=== PATIENT | female | born 1935 | race Caucasian/White ===

== ENCOUNTER 2018-03-22 20:12 | Inpatient (IN) | payer OTHER ==
--- NOTE | 2018-03-22 20:19 | PDOC ---
Rapid Medical Evaluation Time Seen by Provider: 03/22/18 20:14 Medical Evaluation: Allergies Allergy/AdvReac Type Severity Reaction Status Date / Time Corticosteroids Allergy Verified 02/09/18 23:03 (Glucocorticoids) STEROID Allergy REDNESS/HUY Uncoded 02/09/18 23:03 H 03/22/18 20:14 Pt presents for multiple issues including weakness. Pt was seen by her PCP and was told that she has elevated kidney numbers, and possible low H&H. Son is also reporting jaundice. Also states she has shingles on her back, started treatment today. Exam: appears pale, with possible scleral icterus. Ankles swollen Orders: Labs, urine, IV, EKG, CXR Pt to proceed to ED for further evaluation Discharge Disposition - Diagnosis Weakness - Referrals - Patient Instructions - Post Discharge Activity
[2018-03-22 20:50] LABS: BASO % 1.4 % (0-2.0); EOS % 3.9 % (0-4.5); HEMATOCRIT 27.2 % (32.4-45.2); HEMOGLOBIN 8.9 GM/dL (10.7-15.3); LYMPH % 20.3 % (8-40); MCH 26.4 pg (25.7-33.7); MCHC 32.8 g/dl (32.0-36.0); MEAN CELL VOLUME 80.6 fl (80-96); MEAN PLT VOLUME 7.3 fl (7.5-11.1); MONO % 7.3 % (3.8-10.2); NEUT % 67.1 % (42.8-82.8); PLATELET COUNT 619 K/MM3 (134-434); RBC 3.38 M/mm3 (3.60-5.2); RDW 21.9 % (11.6-15.6); WHITE BLOOD COUNT 5.3 K/mm3 (4.0-10.0)
[2018-03-22 21:17] LABS: INR 1.71 (0.83-1.09); PROTHROMBIN TIME (PATIENT) 19.3 SEC (9.7-13.0)
[2018-03-22 21:42] LABS: ALBUMIN 2.5 g/dl (3.4-5.0); ANION GAP 11 MMOL/L (8-16); BILIRUBIN,TOTAL 1.5 mg/dL (0.2-1.0); BLOOD UREA NITROGEN 14 mg/dL (7-18); CALCIUM 8.4 mg/dL (8.5-10.1); CHLORIDE 102 mmol/L (98-107); CO2 23 mmol/L (21-32); CREATININE 0.8 mg/dL (0.55-1.02); GLUCOSE,RANDOM 184 mg/dL (74-106); POTASSIUM 3.7 mmol/L (3.5-5.1); SGOT/AST 116 U/L (15-37); SGPT/ALT 67 U/L (12-78); SODIUM 136 mmol/L (136-145); TOT PROT 6.9 g/dl (6.4-8.2)
[2018-03-22 21:43] LABS: PLATELET ESTIMATE INCREASED
[2018-03-22 21:43] LABS: URINE APPEARANCE SLCLOUDY; URINE BILIRUBIN NEGATIVE (<2.0 mg/dL); URINE COLOR LTYELLOW; URINE GLUCOSE (UA) 1+ (NEGATIVE); URINE KETONE NEGATIVE (NEGATIVE); URINE NITRITE NEGATIVE (NEGATIVE); URINE PROTEIN NEGATIVE (NEGATIVE); URINE UROBILINOGEN NEGATIVE mg/dL (0.2-1.0)
[2018-03-22 21:44] LABS: ALK PHOS 269 U/L (45-117); ANISOCYTOSIS 2+; MACROCYTOSIS OCCASIONAL; N-TERMINAL BNP 2176.85 pg/ml (5-450)
[2018-03-22 21:48] LABS: URINE LEUK ESTERASE 3+ (NEGATIVE)
--- NOTE | 2018-03-22 21:49 | PDOC ---
Attending Attestation - [facility] HPI: 03/22/18 23:23 The patient is a 82 year old female, with a significant past medical history of GERD, HTN and HLD, who presents to the ED complaining of abnormal labs, jaundice and shingles. She notes that her shingles are spread across her back and abdomen. She was diagnosed today with shingles and as started on treatment. Her PMD sent her to the hospital for evaluation of all these stated symptoms, as well as elevated LFTs. On presentation, the patient notes that she is weak. The patient denies chest pain, shortness of breath, headache and dizziness. Denies fever, chills, nausea, vomiting, diarrhea or constipation. Denies dysuria , frequency, urgency and hematuria. Allergies: Corticosteroids Past surgical history: None reported Social History: No alcohol, tobacco or drug use reported - Physicial Exam PE: 03/22/18 23:19 Constitutional: Awake, alert, oriented. No acute distress. Head: Normocephalic. Atraumatic Eyes: PERRL. EOMI. Conjunctivae are not pale. ENT: Mucous membranes are moist and intact. Posterior pharynx without exudates or erythema. Uvula midline. Neck: Supple. Full ROM. No lymphadenopathy. Cardiovascular: Regular rate. Regular rhythm. S1, S2 regular. Distal pulses are 2+ and symmetric. Pulmonary/Chest: No evidence of respiratory distress. Clear to auscultation bilaterally No wheezing, rales or rhonchi. Abdominal: Soft and non-distended. There is no tenderness. No rebound, guarding or rigidity. No organomegaly. No palpable masses. Good bowel sounds. Back: (+) Shingles across back and abdomen (vesicles). No CVA tenderness. Musculoskeletal: (+) Trace edema to the ankles bilaterally. No cyanosis. No clubbing. Full range of motion in all extremities. Nocalf tenderness. Radial/ pedal pulses are intact and 2+ bilaterally Skin: (+) Jaundice. Skin is warm and dry. No petechiae. No purpura. Neurological: Alert and oriented to person, place, and time. Cranial nerves II -XII are grossly intact. Normal speech. Strength is grossly symmetric. No sensory deficits. Psychiatric: Good eye contact. Normal interaction, affect and behavior. <Iain Joyce - Last Filed: 03/22/18 23:25> - Resident Resident Name: David Zaman - ED Attending Attestation I have performed the following: I have examined & evaluated the patient, The case was reviewed & discussed with the resident, I agree w/resident's findings & plan, Exceptions are as noted - Medical Decision Making 03/22/18 21:49 I, Dr. Amara Stephenson, DO, attest that this document has been prepared under my direction and personally reviewed by me in its entirety. I further attest, that it accurately reflects all work, treatment, procedures and medical decision -making performed by me. 03/22/18 22:26 a/p: 82yo female sent by PMD for eval of jaundice, elevated lft -dx with shingles today with extensive shingles across back and abd - vesicles -no cp/sob -trace edema to ankles, but no calf ttp, no tightness to calf -pt is anticoag at baseline -will send labs -sent by PMD also for anemia -will repeat labs -will obtain ekg, ultrasound RUQ, will need admission for elevate lft and shingles infection <Amara Stephenson - Last Filed: 03/23/18 01:40> Discharge Disposition - Discharge Dispostion Last Admission D/C Date: 02/24/18 Decision to Admit order: Yes <Amara Stephenson - Last Filed: 03/23/18 01:40> - Diagnosis Weakness, UTI (urinary tract infection), Shingles - Discharge Dispostion Condition at time of disposition: Fair Heart Score/ECG Review - ECG Intrepretation Comment:: 03/23/18 01:05 sinus at 82, low voltage ekg, rbbb, q waves anterior that are age indeterminate <Amara Stephenson - Last Filed: 03/23/18 01:40>
[2018-03-22 21:51] LABS: EPI CELLS FEW /HPF (FEW); URINE BACTERIA RARE /hpf (NONE SEEN); URINE MUCUS RARE
[2018-03-23] MEDS ORDERED: CEFTRIAXONE 1 GM in DEXTROSE 5%-WATER - 100 ML IVPB ONE (01:23)
--- NOTE | 2018-03-23 01:46 | PN ---
Teaching Attending Note Name of Resident: Maxine Hernandez ATTENDING PHYSICIAN STATEMENT I saw and evaluated the patient. I reviewed the resident's note and discussed the case with the resident. I agree with the resident's findings and plan as documented. SUBJECTIVE: Patient is an 82 year old woman with a significant past medical history of GERD , HTN, recent hiatal hernia repair in 12/2017 with postop Afib, recent pericardial and pleural effusions, and HLD, who presents to the ER from her PCP complaining of abnormal labs, jaundice and shingles. She notes that her shingles are spread across her back and abdomen. She was diagnosed today with shingles and as started on treatment. Her PMD sent her to the hospital for evaluation of all these stated symptoms, as well as elevated LFTs. On presentation, the patient notes that she is weak. She denies chest pain, shortness of breath, headache, chills, vomiting, diarrhea or dysuria. OBJECTIVE: Alert Vital Signs Period Temp Pulse Resp BP Sys/Dawson Pulse Ox Last 24 Hr 98.2 F 92 18 143/78 97 HEENT: Has jaundice, eye redness or discharge, PERRLA, EOMI. Normocephalic, atraumatic. External ears are normal and hearing is grossly intact. No nasal discharge. Neck: Supple, nontender. No palpable adenopathy or thyromegaly. No JVD Chest: Good effort. Clear to auscultation and percussion. Heart: Regular. No S3, rub or murmur Abdomen: Not distended, soft, nontender and no HSM. No rebound or guarding. Normoactive bowel sounds. Ext: Peripheral pulses intact. Vesicles of herpes zoster on her back and abdomen. No leg edema. Skin: Warm and dry. No petechiae, rash or ecchymosis. Neuro: Alert. Oriented x3. CN 2-12 grossly intact. Sensation grossly intact in all four extremities and DTR are symmetric. Current Medications Generic Name Dose Route Start Last Admin Trade Name Freq PRN Reason Stop Dose Admin Ceftriaxone Sodium 1 gm/ 100 mls @ 200 mls/hr 03/23/18 01:23 Dextrose IVPB 03/23/18 01:52 ONCE ONE Protocol Home Medications Medication Instructions Recorded José Miguel/D3/Mag11/Zinc/Director Of Intercollegiate Athletics/[place]/Bor 1 each PO DAILY 11/09/15 [Caltrate 600+D Plus Tablet] Multivitamin [Poly-Vitamin] 1 each PO DAILY 06/02/15 [place]-3 Fatty Acids [Fish Oil] 300 mg PO DAILY 06/02/15 Apixaban [Eliquis -] 5 mg PO BID tablet 02/24/18 Atorvastatin Ca [Lipitor] 10 mg PO HS tablet 02/24/18 Docusate Sodium [Colace -] 100 mg PO TID capsule 02/24/18 Metoprolol Tartrate [Lopressor -] 25 mg PO TID tablet 02/24/18 Pantoprazole Sodium [Protonix -] 40 mg PO DAILY tablet.ec 02/24/18 Melatonin/Pyridoxine HCl (B6) 1 each PO DAILY 03/22/18 [Melatonin 3 mg Tablet] Abnormal Lab Results 03/22/18 03/22/18 03/22/18 20:15 20:41 20:41 RBC 3.38 L Hgb 8.9 L Hct 27.2 L RDW 21.9 H Plt Count 619 H D MPV 7.3 L PT with INR 19.30 H INR 1.71 H Random Glucose Calcium Total Bilirubin AST Alkaline Phosphatase B-Natriuretic Peptide Albumin Urine Glucose (UA) 1+ H Urine Blood 2+ H Ur Leukocyte Esterase 3+ H 03/22/18 20:41 RBC Hgb Hct RDW Plt Count MPV PT with INR INR Random Glucose 184 H Calcium 8.4 L Total Bilirubin 1.5 H AST 116 H Alkaline Phosphatase 269 H D B-Natriuretic Peptide 2176.85 H Albumin 2.5 L Urine Glucose (UA) Urine Blood Ur Leukocyte Esterase ASSESSMENT AND PLAN: 1. Herpes Zoster Infection - May explain some of her weakness, but she has been generally debilitated since her hiatal hernia repair surgery in December 2017, with unexplained elevated LFTs for at least 6-8 weeks. Will continue Valacyclovir 1000 mg po tid; get hepatitis serology, CT scan of abdomen and pelvis, check HbA1c, trend LFTs and consult GI for colonoscopy. Repeat ECHO - ?re- accumulation of pericardial effusion. 2. Hypoalbuminemia - Possibly due to combined effects of malnutrition and inflammation associated with comorbid chronic conditions. Will ensure adequate dietary protein intake and also consult ceramic mold designer. 3. Anemia - Do basic anemia work up including serial stool guaiacs, reticulocyte count and iron studies. 4. Afib - Now in NSR. On Eliquis. 5. DVT prophylaxis - On Eliquis 6. Advance directives - Full code
[2018-03-23] MEDS ORDERED: cefTRIAXone SODIUM 1 GM VIAL ONE (03:38)
--- NOTE | 2018-03-23 03:57 | HP ---
CHIEF COMPLAINT: weakness/abnormal labs/newly diagnosed shingles PCP: HISTORY OF PRESENT ILLNESS: 82 y/o female with PMH of HTN, Afib(on eliquis), HTN, HLD presented to the ED after coming from her PCP office for evaluation of abormal LFT's. In addition patient was diagnosed with shingles today and started on valacyclovir. Of note, patient had a hernia repair surgery back in December and has not felt well ever since. She had a complicated post-op course where she went into new onset Afib with RVR in addition developed pericardial effusions and was in the ICU. Since then, she has not felt like herself- she has less energy, barely has an appetite and has developed anemia and has began to become a lot more dyspneic than usual. ER course was notable for: (1) (2) (3) Recent Travel: none PAST MEDICAL HISTORY: see HPI PAST SURGICAL HISTORY: hernia repair, bladder lift Social History: Smoking: none Alcohol:none Drugs:none Family History: Allergies Corticosteroids (Glucocorticoids) Allergy (Verified 03/22/18 20:17) PER FAB[employer]IC[employer], PT STATED "STEROID" PT IS UNSURE OF WHICH STEROID. STEROID Allergy (Uncoded 03/22/18 20:17) REDNESS/RASH HOME MEDICATIONS: Home Medications Medication Instructions Recorded José Miguel/D3/Mag11/Zinc/Cello Teacher/[place]/Bor 1 each PO DAILY 06/02/15 [Caltrate 600+D Plus Tablet] Multivitamin [Poly-Vitamin] 1 each PO DAILY 06/02/15 [place]-3 Fatty Acids [Fish Oil] 300 mg PO DAILY 06/02/15 Apixaban [Eliquis -] 5 mg PO BID tablet 02/24/18 Atorvastatin Ca [Lipitor] 10 mg PO HS tablet 02/24/18 Docusate Sodium [Colace -] 100 mg PO TID capsule 02/24/18 Metoprolol Tartrate [Lopressor -] 25 mg PO TID tablet 02/24/18 Pantoprazole Sodium [Protonix -] 40 mg PO DAILY tablet.ec 02/24/18 Melatonin/Pyridoxine HCl (B6) 1 each PO DAILY 03/22/18 [Melatonin 3 mg Tablet] REVIEW OF SYSTEMS CONSTITUTIONAL: Present: generalized weakness, malaise, loss of appetiteAbsent: fever, chills, diaphoresis, weight change HEENT: Absent: rhinorrhea, nasal congestion, throat pain, throat swelling, difficulty swallowing, mouth swelling, ear pain, eye pain, visual changes CARDIOVASCULAR: Absent: chest pain, syncope, palpitations, irregular heart rate, lightheadedness , peripheral edema RESPIRATORY: Present:shortness of breath, dyspnea with exertion Absent: cough, orthopnea, wheezing, stridor, hemoptysis GASTROINTESTINAL: Absent: abdominal pain, abdominal distension, nausea, vomiting, diarrhea, constipation, melena, hematochezia GENITOURINARY: Absent: dysuria, frequency, urgency, hesitancy, hematuria, flank pain, genital pain MUSCULOSKELETAL: Absent: myalgia, arthralgia, joint swelling, back pain, neck pain SKIN: Present: shingles rash on back Absent: rash, itching, pallor HEMATOLOGIC/IMMUNOLOGIC: Absent: easy bleeding, easy bruising, lymphadenopathy, frequent infections ENDOCRINE: Absent: unexplained weight gain, unexplained weight loss, heat intolerance, cold intolerance NEUROLOGIC: Absent: headache, focal weakness or paresthesias, dizziness, unsteady gait, seizure, mental status changes, bladder or bowel incontinence PSYCHIATRIC: Absent: anxiety, depression, suicidal or homicidal ideation, hallucinations. PHYSICAL EXAMINATION Vital Signs - 24 hr 03/22/18 20:14 Temperature 98.2 F Pulse Rate 92 H Respiratory 18 Rate Blood Pressure 143/78 O2 Sat by Pulse 97 Oximetry (%) GENERAL: Awake, alert, and fully oriented, in no acute distress. EYES: +sclera icterus . NECK: no JVD appreciated. LUNGS: CTA B/L; no rales, rhonchi, wheezing HEART: Regular rate and rhythm, normal S1 and S2 without murmur, rub or gallop. ABDOMEN: Soft, nontender, not distended, normoactive bowel sounds, no guarding, no rebound, no masses. No hepatomegaly or splenomegaly. MUSCULOSKELETAL: Normal range of motion at all joints. No bony deformities or tenderness. No CVA tenderness. UPPER EXTREMITIES: 2+ pulses, warm, well-perfused. No cyanosis. No clubbing. No peripheral edema. LOWER EXTREMITIES: 2+ pulses, warm, well-perfused. No calf tenderness. No peripheral edema. NEUROLOGICAL: Cranial nerves II-XII intact. Normal speech. Normal gait. PSYCHIATRIC: Cooperative. Good eye contact. Appropriate mood and affect. SKIN: Warm, dry, normal turgor, no rashes or lesions noted, normal capillary refill. Laboratory Results - last 24 hr 03/22/18 03/22/18 03/22/18 20:15 20:41 20:41 WBC 5.3 RBC 3.38 L Hgb 8.9 L Hct 27.2 L MCV 80.6 MCH 26.4 MCHC 32.8 RDW 21.9 H Plt Count 619 H D MPV 7.3 L Absolute Neuts (auto) 3.6 Neutrophils % 67.1 D Lymphocytes % 20.3 D Monocytes % 7.3 Eosinophils % 3.9 D Basophils % 1.4 D Nucleated RBC % 0 Hypochromia Occasional Platelet Estimate Increased Polychromasia Occ Anisocytosis 2+ Macrocytosis Occasional PT with INR 19.30 H INR 1.71 H Sodium Potassium Chloride Carbon Dioxide Anion Gap BUN Creatinine Creat Clearance w eGFR Random Glucose Calcium Total Bilirubin AST ALT Alkaline Phosphatase Creatine Kinase Troponin I B-Natriuretic Peptide Total Protein Albumin Urine Color Ltyellow Urine Appearance Slcloudy Urine pH 6.0 Ur Specific [place] 1.003 Urine Protein Negative Urine Glucose (UA) 1+ H Urine Ketones Negative Urine Blood 2+ H Urine Nitrite Negative Urine Bilirubin Negative Urine Urobilinogen Negative Ur Leukocyte Esterase 3+ H Urine WBC (Auto) 8 Urine RBC (Auto) 4 Ur Epithelial Cells Few Urine Bacteria Rare Urine Mucus Rare Blood Type Antibody Screen 03/22/18 03/22/18 03/22/18 20:41 20:41 20:41 WBC RBC Hgb Hct MCV MCH MCHC RDW Plt Count MPV Absolute Neuts (auto) Neutrophils % Lymphocytes % Monocytes % Eosinophils % Basophils % Nucleated RBC % Hypochromia Platelet Estimate Polychromasia Anisocytosis Macrocytosis PT with INR INR Sodium 136 Potassium 3.7 Chloride 102 Carbon Dioxide 23 Anion Gap 11 BUN 14 Creatinine 0.8 Creat Clearance w eGFR > 60 Random Glucose 184 H Calcium 8.4 L Total Bilirubin 1.5 H AST 116 H ALT 67 Alkaline Phosphatase 269 H D Creatine Kinase 42 Troponin I < 0.02 B-Natriuretic Peptide 2176.85 H Total Protein 6.9 Albumin 2.5 L Urine Color Urine Appearance Urine pH Ur Specific [place] Urine Protein Urine Glucose (UA) Urine Ketones Urine Blood Urine Nitrite Urine Bilirubin Urine Urobilinogen Ur Leukocyte Esterase Urine WBC (Auto) Urine RBC (Auto) Ur Epithelial Cells Urine Bacteria Urine Mucus Blood Type A POSITIVE Antibody Screen Negative ASSESSMENT/PLAN: 82 y/o female with PMH of HTN, Afib(on eliquis), HTN, HLD presented to the ED after coming from her PCP office for evaluation of abormal LFT's. In addition patient was diagnosed with shingles today and started on valacyclovir. #1: Transaminitis patient found to have abnormal LFT's with scleral icterus, elevated alk phos and malaise possibly 2/2 malignancy vs. obstruction -f/u RUQ U/S -ct/ab pelvis pending -hepatitis panel ordered -GI consulted -trend LFT's #2: Shingles patient got diagnosed with shingles yesterday -started on valacyclovir 100 BID -calomine lotion for itchiness #3:Afib -on eliquis for AC #4: HTN: lopressor 25 daily #5 HLD: atorvastatin 10 daily Problem List - Problem (1) Elevated LFTs Code(s): R94.5 - ABNORMAL RESULTS OF LIVER FUNCTION STUDIES (2) Shingles Code(s): B02.9 - ZOSTER WITHOUT COMPLICATIONS (3) Weakness Code(s): R53.1 - WEAKNESS (4) Atrial fibrillation with RVR Code(s): I48.91 - UNSPECIFIED ATRIAL FIBRILLATION (5) Shortness of breath Code(s): R06.02 - SHORTNESS OF BREATH Visit type - Emergency Visit Emergency Visit: Yes ED Registration Date: 03/22/18 Care time: The patient presented to the Emergency Department on the above date and was hospitalized for further evaluation of their emergent condition. - New Patient This patient is new to me today: Yes Date on this admission: 03/23/18 - Critical Care Critical Care patient: No Hospitalist Screening - Colonoscopy Questionnaire Colonoscopy Questionnaire: Colonoscopy Questionnaire - Patient: 50 - 75 years old and never had a screening colonoscopy: Unknown History of colon or rectal polyps, or CA: Unknown History of IBD, Crohn's disease or UC: Unknown History of abdominal radiation therapy as a child: Unknown - Relative: 1 with colon or rectal CA, or polyps at age 60 or younger: Unknown Colon or rectal CA diagnosed at age 45 or younger: Unknown Multiple relatives with colon or rectal CA: Unknown - Outcome: Screening Result: Negative Screen
[2018-03-23 04:46] VITALS: BMI 27.9
[2018-03-23] MEDS: METOPROLOL TARTRATE 25 MG TABLET (FP) PO SCH ×3 (06:00→21:42)
[2018-03-23 07:40] LABS: LYMPH % 14.6 % (8-40); RBC 3.16 M/mm3 (3.60-5.2)
[2018-03-23 08:04] LABS: INR 1.46 (0.83-1.09); PROTHROMBIN TIME (PATIENT) 16.5 SEC (9.7-13.0)
[2018-03-23 08:06] LABS: BASO % 1.3 % (0-2.0); HEMATOCRIT 25.3 % (32.4-45.2); HEMOGLOBIN 8.1 GM/dL (10.7-15.3); MCH 25.6 pg (25.7-33.7); MEAN PLT VOLUME 7.5 fl (7.5-11.1); MONO % 8.9 % (3.8-10.2); NEUT % 73.2 % (42.8-82.8); PLATELET COUNT 549 K/MM3 (134-434); RDW 21.9 % (11.6-15.6)
[2018-03-23 08:22] LABS: CHLORIDE 107 mmol/L (98-107); POTASSIUM 3.8 mmol/L (3.5-5.1); SODIUM 141 mmol/L (136-145)
[2018-03-23 08:47] LABS: ALBUMIN 2.2 g/dl (3.4-5.0); ALK PHOS 227 U/L (45-117); ANION GAP 10 MMOL/L (8-16); BILIRUBIN,TOTAL 0.9 mg/dL (0.2-1.0); BLOOD UREA NITROGEN 10 mg/dL (7-18); CALCIUM 8.5 mg/dL (8.5-10.1); CO2 24 mmol/L (21-32); CREATININE 0.6 mg/dL (0.55-1.02); GLUCOSE,RANDOM 129 mg/dL (74-106); SGOT/AST 67 U/L (15-37); SGPT/ALT 49 U/L (12-78); TOT PROT 6.2 g/dl (6.4-8.2)
--- NOTE | 2018-03-23 09:27 | PDOC ---
History of Present Illness - General Chief Complaint: Revisit, Lab Variance Stated Complaint: PCP SENT/WEAKNESS Time Seen by Provider: 03/22/18 20:14 History Source: Patient Exam Limitations: No Limitations - History of Present Illness Initial Comments: Ms. Mcnamara is a 82 yo F with a pmhx of HTN, HLD, afib, and GERD who presents to the ED after being referred by her primary care doctor for abnormal labs, shingles outbreak, and new onset of jaundice. Her shingles outbreak has been ongoing for 1 day and is located on the right back spreading to the abdomen right side. She was placed on valcyclovir for this yesterday. In addition, per the patient, the PCP had concerns for her elevated LFTs and anemia. She has been having generalized weakness since her previous admission for pericardial effusion s/p pericardial window with acute worsening in the past few days ( Worse on Tuesday, states better today). Denies over use of ibuprofen. Denies the following: fever, headache, chest pain, SOB, nausea vomiting, diarrhea, melena/ he,atochezia, and lightheadedness. Pmhx: Refer to above Shx: Hiatal hernia repair December 29. Meds: Eliquis, metoprolol, lipitor, and protonix Social hx: Denies tobacco, alcohol, and substance abuse Wellness: Last colonoscopy 10 years ago and within normal limits. Denies familial colonic cancer hx. Past History - Past Medical History Allergies/Adverse Reactions: Allergies Allergy/AdvReac Type Severity Reaction Status Date / Time Corticosteroids Allergy Verified 03/22/18 20:17 (Glucocorticoids) STEROID Allergy REDNESS/HUY Uncoded 03/22/18 20:17 H Home Medications: Ambulatory Orders José Miguel/D3/Mag11/Zinc/Soil Analyst/Mas[place]/Bor [Caltrate 600+D Plus Tablet] 1 each PO DAILY 04/08 Multivitamin [Poly-Vitamin] 1 each PO DAILY 06/02/15 [place]-3 Fatty Acids [Fish Oil] 300 mg PO DAILY 06/02/15 Apixaban [Eliquis -] 5 mg PO BID tablet 02/24/18 Atorvastatin Ca [Lipitor] 10 mg PO HS tablet 02/24/18 Docusate Sodium [Colace -] 100 mg PO TID capsule 02/24/18 Metoprolol Tartrate [Lopressor -] 25 mg PO TID tablet 02/24/18 Pantoprazole Sodium [Protonix -] 40 mg PO DAILY tablet.ec 02/24/18 Melatonin/Pyridoxine HCl (B6) [Melatonin 3 mg Tablet] 1 each PO DAILY 03/22/18 Valacyclovir HCl [Valtrex -] 1,000 mg PO TID 03/23/18 Anemia: No Asthma: No Cancer: No Cardiac Disorders: Yes (AF) CVA: No COPD: No CHF: No Dementia: No Diabetes: No GI Disorders: Yes (GERD) Disorders: No HTN: Yes Hypercholesterolemia: Yes Liver Disease: No Seizures: No Thyroid Disease: No - Surgical History Abdominal Surgery: Yes (HERNIA REPAIR) - Reproductive History Is Patient Now?: No - Suicide/Smoking/Psychosocial Hx Smoking History: Never smoked Have you smoked in the past 12 months: No Number of Cigarettes Smoked Daily: 0 Cigars Per Day: 0 Information on smoking cessation initiated: No Hx Alcohol Use: No Drug/Substance Use Hx: No Substance Use Type: None Hx Substance Use Treatment: No Review of Systems - Review of Systems Able to Perform ROS?: Yes Constitutional: Yes: Weakness. No: Chills, Diaphoresis, Fever HEENTM: No: Recent change in vision, Ear Pain, Nose Pain, Throat Pain, Mouth Pain Respiratory: No: Cough, Shortness of Breath Cardiac (ROS): No: Chest Pain, Edema, Lightheadedness, Palpitations, Syncope, Chest Tightness ABD/GI: No: Constipated, Diarrhea, Nausea, Rectal Bleeding, Vomiting, Tarry Stools : No: Burning, Dysuria, Hematuria Musculoskeletal: Yes: Muscle Weakness. No: Back Pain Integumentary: Yes: Rash (right side). No: Erythema Neurological: Yes: Weakness. No: Headache, Numbness, Paresthesia, Tingling, Tremors, Unsteady Gait, Dizziness Psychiatric: No: Stressors Endocrine: No: Unexplained Weight Gain Hematologic/Lymphatic: Yes: Anemia *Physical Exam - Vital Signs Last Vital Signs Temp Pulse Resp BP Pulse Ox 98.9 F 92 H 18 123/97 97 03/23/18 04:38 03/23/18 04:38 03/23/18 05:18 03/23/18 04:38 03/23/18 05:18 - Physical Exam General Appearance: Yes: Nourished, Appropriately Dressed HEENT: positive: EOMI, JACINDA, Normal ENT Inspection, Normal Voice, Symmetrical Neck: positive: Trachea midline. negative: Lymphadenopathy (R), Lymphadenopathy (L) Respiratory/Chest: positive: Lungs Clear, Normal Breath Sounds Cardiovascular: positive: Regular Rhythm, Regular Rate, S1, S2. negative: Systolic Murmur Gastrointestinal/Abdominal: positive: Normal Bowel Sounds. negative: Tender Lymphatic: negative: Adenopathy Musculoskeletal: negative: CVA Tenderness Extremity: positive: Normal Capillary Refill, Swelling (bilateral lower extremities. R>L in the ankle region). negative: Normal Inspection Integumentary: positive: Dry, Warm, Jaundice Neurologic: positive: used car lot porter II-XII NML intact, Fully Oriented, Alert, Normal Mood/ Affect Heart Score/ECG Review - ECG Intrepretation Comment:: ventricular rate 81. RBBB seen. No ST elevations or depressions noted. ED Treatment Course - LABORATORY CBC & Chemistry Diagram: 03/23/18 07:30 03/23/18 07:30 - ADDITIONAL ORDERS Additional order review: Laboratory Results 03/22/18 03/22/18 03/22/18 20:41 20:41 20:41 PT with INR INR Sodium 136 Potassium 3.7 Chloride 102 Carbon Dioxide 23 Anion Gap 11 BUN 14 Creatinine 0.8 Creat Clearance w eGFR > 60 Random Glucose 184 H Calcium 8.4 L Total Bilirubin 1.5 H AST 116 H ALT 67 Alkaline Phosphatase 269 H D Creatine Kinase 42 Troponin I < 0.02 B-Natriuretic Peptide 2176.85 H Total Protein 6.9 Albumin 2.5 L Urine Color Urine Appearance Urine pH Ur Specific [place] Urine Protein Urine Glucose (UA) Urine Ketones Urine Blood Urine Nitrite Urine Bilirubin Urine Urobilinogen Ur Leukocyte Esterase Urine WBC (Auto) Urine RBC (Auto) Ur Epithelial Cells Urine Bacteria Urine Mucus Blood Type A POSITIVE Antibody Screen Negative 03/22/18 03/22/18 20:41 20:15 PT with INR 19.30 H INR 1.71 H Sodium Potassium Chloride Carbon Dioxide Anion Gap BUN Creatinine Creat Clearance w eGFR Random Glucose Calcium Total Bilirubin AST ALT Alkaline Phosphatase Creatine Kinase Troponin I B-Natriuretic Peptide Total Protein Albumin Urine Color Ltyellow Urine Appearance Slcloudy Urine pH 6.0 Ur Specific [place] 1.003 Urine Protein Negative Urine Glucose (UA) 1+ H Urine Ketones Negative Urine Blood 2+ H Urine Nitrite Negative Urine Bilirubin Negative Urine Urobilinogen Negative Ur Leukocyte Esterase 3+ H Urine WBC (Auto) 8 Urine RBC (Auto) 4 Ur Epithelial Cells Few Urine Bacteria Rare Urine Mucus Rare Blood Type Antibody Screen 03/22/18 20:41 RBC 3.38 L MCV 80.6 MCHC 32.8 RDW 21.9 H MPV 7.3 L Neutrophils % 67.1 D Lymphocytes % 20.3 D Monocytes % 7.3 Eosinophils % 3.9 D Basophils % 1.4 D - RADIOLOGY Radiology Studies Ordered: Category Date Time Status ABDOMEN US -LIMITED [US] Stat Ultrasound 03/23/18 00:18 Completed - Medications Given in the ED: ED Medications Discontinued Medications Generic Name Dose Route Start Last Admin Trade Name Freq PRN Reason Stop Dose Admin Ceftriaxone Sodium 1 gm/ 100 mls @ 200 mls/hr 03/23/18 01:23 03/23/18 03:37 Dextrose IVPB 03/23/18 01:52 200 mls/hr ONCE ONE Administration Protocol Medical Decision Making - Medical Decision Making 82 yo F with hx of afib, HTN, HLD, and GERD presents to the ED with lab variances and generalized weakness for 1 week with recent admission resulting in pericardial window 2/2 pericardial effusion. Initial vitals: Initial Vital Signs Temp Pulse Resp BP Pulse Ox 98.2 F 92 H 18 143/78 97 03/22/18 20:14 03/22/18 20:14 03/22/18 20:14 03/22/18 20:14 03/22/18 20:14 Work up" Laboratory Tests 03/22/18 03/22/18 03/22/18 20:15 20:41 20:41 WBC 5.3 RBC 3.38 L Hgb 8.9 L Hct 27.2 L MCV 80.6 MCH 26.4 MCHC 32.8 RDW 21.9 H Plt Count 619 H D MPV 7.3 L Absolute Neuts (auto) 3.6 Neutrophils % 67.1 D Lymphocytes % 20.3 D Monocytes % 7.3 Eosinophils % 3.9 D Basophils % 1.4 D Nucleated RBC % 0 Hypochromia Occasional Platelet Estimate Increased Polychromasia Occ Anisocytosis 2+ Macrocytosis Occasional PT with INR 19.30 H INR 1.71 H Sodium Potassium Chloride Carbon Dioxide Anion Gap BUN Creatinine Creat Clearance w eGFR Random Glucose Calcium Total Bilirubin AST ALT Alkaline Phosphatase Creatine Kinase Troponin I B-Natriuretic Peptide Total Protein Albumin Urine Color Ltyellow Urine Appearance Slcloudy Urine pH 6.0 Ur Specific [place] 1.003 Urine Protein Negative Urine Glucose (UA) 1+ H Urine Ketones Negative Urine Blood 2+ H Urine Nitrite Negative Urine Bilirubin Negative Urine Urobilinogen Negative Ur Leukocyte Esterase 3+ H Urine WBC (Auto) 8 Urine RBC (Auto) 4 Ur Epithelial Cells Few Urine Bacteria Rare Urine Mucus Rare Blood Type Antibody Screen 03/22/18 03/22/18 03/22/18 20:41 20:41 20:41 WBC RBC Hgb Hct MCV MCH MCHC RDW Plt Count MPV Absolute Neuts (auto) Neutrophils % Lymphocytes % Monocytes % Eosinophils % Basophils % Nucleated RBC % Hypochromia Platelet Estimate Polychromasia Anisocytosis Macrocytosis PT with INR INR Sodium 136 Potassium 3.7 Chloride 102 Carbon Dioxide 23 Anion Gap 11 BUN 14 Creatinine 0.8 Creat Clearance w eGFR > 60 Random Glucose 184 H Calcium 8.4 L Total Bilirubin 1.5 H AST 116 H ALT 67 Alkaline Phosphatase 269 H D Creatine Kinase 42 Troponin I < 0.02 B-Natriuretic Peptide 2176.85 H Total Protein 6.9 Albumin 2.5 L Urine Color Urine Appearance Urine pH Ur Specific [place] Urine Protein Urine Glucose (UA) Urine Ketones Urine Blood Urine Nitrite Urine Bilirubin Urine Urobilinogen Ur Leukocyte Esterase Urine WBC (Auto) Urine RBC (Auto) Ur Epithelial Cells Urine Bacteria Urine Mucus Blood Type A POSITIVE Antibody Screen Negative duplex study was negative for DVT. RUQ us showed chloelithiasis with heterogenous liver with no evidence of biliary ductal dilatation. Given the elevated LFTs in the setting of a hetergenous liver, will be admitted for elevated LFTs and shingles infection. -Dispo: Admit *DC/Admit/Observation/Transfer Diagnosis at time of Disposition: Weakness UTI (urinary tract infection) Qualifiers: Urinary tract infection type: site unspecified Hematuria presence: without hematuria Qualified Code(s): N39.0 - Urinary tract infection, site not specified Shingles Qualifiers: Herpes zoster complications: unspecified herpes zoster complication Qualified Code(s): B02.8 - Zoster with other complications - Discharge Dispostion Condition at time of disposition: Fair Decision to Admit order: Yes - Referrals - Patient Instructions - Post Discharge Activity
[2018-03-23] MEDS ORDERED: PT OWN MED DRAWER 7, Y5N ONE ×2 (09:39→21:26)
[2018-03-23] MEDS: MULTIVITAMINS (DAILY MVI) TABLET (FP) PO SCH (09:58)
[2018-03-23] MEDS: CALCIUM 500MG/VIT-D 200 UNITS COMBO TABLET (FP) PO SCH (09:58)
[2018-03-23] MEDS: APIXABAN 5 MG TABLET PO SCH ×2 (09:58→21:42)
[2018-03-23] MEDS: PANTOPRAZOLE 40 MG TABLET (FP) PO SCH (09:58)
[2018-03-23] MEDS: valACYclovir HCL 500 MG TABLET (FP) PO SCH ×2 (09:59→21:46)
--- NOTE | 2018-03-23 10:02 | CON.GI ---
Consult Consult Specialty:: GI Reason for Consultation:: elevated liver chemistry, bili - History of Present Illness History of Present Illness: Chart reviewed. As per initial intake earlier today: Patient is an 82 year old woman with a significant past medical history of GERD, HTN, recent hiatal hernia repair in 2017 with postop Afib, recent pericardial and pleural effusions, and HLD, who presents to the ER from her PCP complaining of abnormal labs, jaundice and shingles. She notes that her shingles are spread across her back and abdomen. She was diagnosed today with shingles and as started on treatment. Her PMD sent her to the hospital for evaluation of all these stated symptoms, as well as elevated LFTs. On presentation, the patient notes that she is weak. She denies chest pain, shortness of breath, headache, chills, vomiting, diarrhea or dysuria. On Eliquis. Normocytic hypochromic anemia, thrombocytosis, mild hypocoagulable state with normal, on repeat, t. bili and alt, AST and ALP x 2 normal. BNP noted to be elevated. Last screening colonoscopy 10 y ago, normal. At the time of this encounter, the pt appeared not in distress, or discomfort. Reported no prior issues with liver, or having been told of abnormal liver tests. Denied having fever, chills, nausea, vomiting, hematemesis, dysphagia, odynophagia, abdominal pain, altered bowels, pencil-thin, or ribbon-like stools. Denied melena, hematochezia, weight loss. US or RUQ 03/23/18 HISTORY PROVIDED: Jaundice. Real time examination of the abdomen demonstrates the following: The study is limited. The gallbladder is somewhat contracted and thick walled. It does contain small calculi. There is no evidence of intra or extrahepatic biliary duct dilatation. The liver is heterogeneous in texture. This may be related to hepatocellular disease. Clinical and laboratory correlation is recommended. No discrete intrahepatic masses are identified. Hepatopedal flow is documented within the main portal vein. The pancreas is poorly visualized due to overlying bowel gas. There is no evidence of hydronephrosis or acute abnormalities of the right kidney. There is a right renal cyst measuring 2.4 x 2.4 x 1.9 cm. There is no evidence of AAA. The IVC is patent. IMPRESSION: 1. Cholelithiasis. 2. Heterogeneous liver with no evidence of biliary ductal dilatation. Limited study as described above. CT A/P w/o - cholelithiasis - History Source History Provided By: Patient, Medical Record - Past Medical History Cardio/Vascular: Yes: AFIB ...: No - Alcohol/Substance Use Hx Alcohol Use: No - Smoking History Smoking history: Never smoked Have you smoked in the past 12 months: No Aproximately how many cigarettes per day: 0 Home Medications - Allergies Allergies/Adverse Reactions: Allergies Allergy/AdvReac Type Severity Reaction Status Date / Time Corticosteroids Allergy Verified 03/22/18 20:17 (Glucocorticoids) shellfish derived Allergy Verified 03/23/18 15:26 STEROID Allergy REDNESS/HUY Uncoded 03/22/18 20:17 H - Home Medications Home Medications: Ambulatory Orders José Miguel/D3/Mag11/Zinc/Head Of English/Masoud/Bor [Caltrate 600+D Plus Tablet] 1 each PO DAILY 04/08 Multivitamin [Poly-Vitamin] 1 each PO DAILY 06/02/15 [place]-3 Fatty Acids [Fish Oil] 300 mg PO DAILY 06/02/15 Apixaban [Eliquis -] 5 mg PO BID tablet 02/24/18 Atorvastatin Ca [Lipitor] 10 mg PO HS tablet 02/24/18 Docusate Sodium [Colace -] 100 mg PO TID capsule 02/24/18 Metoprolol Tartrate [Lopressor -] 25 mg PO TID tablet 02/24/18 Pantoprazole Sodium [Protonix -] 40 mg PO DAILY tablet.ec 02/24/18 Melatonin/Pyridoxine HCl (B6) [Melatonin 3 mg Tablet] 1 each PO DAILY 03/22/18 Valacyclovir HCl [Valtrex -] 1,000 mg PO TID 03/23/18 Family Disease History - Family Disease History Family History: Unremarkable Review of Systems Findings/Remarks: as per HPI, ED, H&P Physical Exam-GI Vital Signs: Vital Signs Temperature 98.9 F 03/23/18 04:38 Pulse Rate 92 H 03/23/18 04:38 Respiratory Rate 18 03/23/18 05:18 Blood Pressure 123/97 03/23/18 04:38 O2 Sat by Pulse Oximetry (%) 97 03/23/18 05:18 Constitutional: Yes: Well Nourished, No Distress, Calm Eyes: Yes: Conjunctiva Clear HENT: Yes: Atraumatic Neck: Yes: Supple Cardiovascular: Yes: Regular Rate and Rhythm Respiratory: Yes: Regular Gastrointestinal Inspection: No: Ascites, Distention ...Auscultate: Yes: Normoactive Bowel Sounds ...Palpate: Yes: Soft. No: Firm/Rigid, Guarding, Mass, Tenderness, Tenderness, Epigastium, Tenderness, Rebound Neurological: Yes: Alert, Oriented. No: Asterixis, Confusion, Lethargy Labs: CBC, BMP 03/23/18 07:30 03/23/18 07:30 INR, PTT INR 1.46 (0.83-1.09) H 03/23/18 07:30 Laboratory Last Values WBC 6.0 K/mm3 (4.0-10.0) 03/23/18 07:30 RBC 3.16 M/mm3 (3.60-5.2) L 03/23/18 07:30 Hgb 8.1 GM/dL (10.7-15.3) L 03/23/18 07:30 Hct 25.3 % (32.4-45.2) L 03/23/18 07:30 MCV 80.0 fl (80-96) 03/23/18 07:30 MCH 25.6 pg (25.7-33.7) L 03/23/18 07:30 MCHC 32.0 g/dl (32.0-36.0) 03/23/18 07:30 RDW 21.9 % (11.6-15.6) H 03/23/18 07:30 Plt Count 549 K/MM3 (134-434) H 03/23/18 07:30 MPV 7.5 fl (7.5-11.1) 03/23/18 07:30 Absolute Neuts (auto) 4.4 K/mm3 (1.5-8.0) 03/23/18 07:30 Neutrophils % 73.2 % (42.8-82.8) 03/23/18 07:30 Lymphocytes % 14.6 % (8-40) D 03/23/18 07:30 Monocytes % 8.9 % (3.8-10.2) 03/23/18 07:30 Eosinophils % 2.0 % (0-4.5) 03/23/18 07:30 Basophils % 1.3 % (0-2.0) 03/23/18 07:30 Nucleated RBC % 0 % (0-0) 03/23/18 07:30 Hypochromia Occasional 03/22/18 20:41 Platelet Estimate Increased 03/22/18 20:41 Polychromasia Occ 03/22/18 20:41 Anisocytosis 2+ 03/22/18 20:41 Macrocytosis Occasional 03/22/18 20:41 Retic Count 1.87 % (0.5-1.5) H 03/23/18 07:30 PT with INR 16.50 SEC (9.7-13.0) H 03/23/18 07:30 INR 1.46 (0.83-1.09) H 03/23/18 07:30 Sodium 141 mmol/L (136-145) 03/23/18 07:30 Potassium 3.8 mmol/L (3.5-5.1) 03/23/18 07:30 Chloride 107 mmol/L (98-107) 03/23/18 07:30 Carbon Dioxide 24 mmol/L (21-32) 03/23/18 07:30 Anion Gap 10 MMOL/L (8-16) 03/23/18 07:30 BUN 10 mg/dL (7-18) 03/23/18 07:30 Creatinine 0.6 mg/dL (0.55-1.02) 03/23/18 07:30 Creat Clearance w eGFR > 60 (>60) 03/23/18 07:30 Random Glucose 129 mg/dL (74-106) H 03/23/18 07:30 Hemoglobin A1c % 5.7 % (4.8-6.0) 03/23/18 07:30 Calcium 8.5 mg/dL (8.5-10.1) 03/23/18 07:30 Phosphorus 4.0 mg/dL (2.5-4.9) 03/23/18 07:30 Magnesium 2.0 mg/dL (1.8-2.4) 03/23/18 07:30 Ferritin 436.7 ng/ml (6.9-282.5) H 03/23/18 07:30 Total Bilirubin 0.9 mg/dL (0.2-1.0) 03/23/18 07:30 AST 67 U/L (15-37) H 03/23/18 07:30 ALT 49 U/L (12-78) 03/23/18 07:30 Alkaline Phosphatase 227 U/L (45-117) H D 03/23/18 07:30 Creatine Kinase 42 IU/L (26-192) 03/22/18 20:41 Troponin I < 0.02 ng/ml (0.00-0.05) 03/22/18 20:41 B-Natriuretic Peptide 2176.85 pg/ml (5-450) H 03/22/18 20:41 Total Protein 6.2 g/dl (6.4-8.2) L 03/23/18 07:30 Albumin 2.2 g/dl (3.4-5.0) L 03/23/18 07:30 Urine Color Ltyellow 03/22/18 20:15 Urine Appearance Slcloudy 03/22/18 20:15 Urine pH 6.0 (5.0-8.0) 03/22/18 20:15 Ur Specific [place] 1.003 (1.001-1.035) 03/22/18 20:15 Urine Protein Negative (NEGATIVE) 03/22/18 20:15 Urine Glucose (UA) 1+ (NEGATIVE) H 03/22/18 20:15 Urine Ketones Negative (NEGATIVE) 03/22/18 20:15 Urine Blood 2+ (NEGATIVE) H 03/22/18 20:15 Urine Nitrite Negative (NEGATIVE) 03/22/18 20:15 Urine Bilirubin Negative (<2.0 mg/dL) 03/22/18 20:15 Urine Urobilinogen Negative mg/dL (0.2-1.0) 03/22/18 20:15 Ur Leukocyte Esterase 3+ (NEGATIVE) H 03/22/18 20:15 Urine WBC (Auto) 8 /hpf (3-5) 03/22/18 20:15 Urine RBC (Auto) 4 /hpf (0-3) 03/22/18 20:15 Ur Epithelial Cells Few /HPF (FEW) 03/22/18 20:15 Urine Bacteria Rare /hpf (NONE SEEN) 03/22/18 20:15 Urine Mucus Rare 03/22/18 20:15 Blood Type A POSITIVE 03/22/18 20:41 Antibody Screen Negative 03/22/18 20:41 Imaging - Results Cat Scan: Report Reviewed Ultrasound: Report Reviewed Problem List - Problems (1) Elevated LFTs Code(s): R94.5 - ABNORMAL RESULTS OF LIVER FUNCTION STUDIES (2) Shingles Code(s): B02.9 - ZOSTER WITHOUT COMPLICATIONS Qualifiers: Herpes zoster complications: unspecified herpes zoster complication Qualified Code(s): B02.8 - Zoster with other complications (3) UTI (urinary tract infection) Code(s): N39.0 - URINARY TRACT INFECTION, SITE NOT SPECIFIED Qualifiers: Urinary tract infection type: site unspecified Hematuria presence: without hematuria Qualified Code(s): N39.0 - Urinary tract infection, site not specified (4) Weakness Code(s): R53.1 - WEAKNESS (5) Atrial fibrillation with RVR Code(s): I48.91 - UNSPECIFIED ATRIAL FIBRILLATION (6) Pericardial effusion without cardiac tamponade Code(s): I31.3 - PERICARDIAL EFFUSION (NONINFLAMMATORY) (7) Pleural effusion Code(s): J90 - PLEURAL EFFUSION, NOT ELSEWHERE CLASSIFIED (8) Cholelithiases Code(s): K80.20 - CALCULUS OF GALLBLADDER W/O CHOLECYSTITIS W/O OBSTRUCTION Assessment/Plan An 82F with cholelithiasis, mild asymptomatic transaminitis and cholestasis as well as normocytic, hypochromic anemia w/o overt stigmata of GI blood loss. The cholestasis appeared to be resolving as documented on the subsequent blood test. Doubt the changes in liver chem is shingles-related. ?passed gallstone Anemia on Eliquis Recommend: monitor liver chemistry, bili, ALP, lipase. Iron profile, stool for occult blood. Low fat diet. MRI/MRCP can be considered if bili/ALP/AST rebound. EGD and colonsocopy.
--- NOTE | 2018-03-23 10:24 | PN ---
Progress Note (short form) - Note Progress Note: Patient seen and examined Comfortable No distress Chart reviewed Vital Signs Temp 98.9 F 03/23/18 04:38 Pulse 92 H 03/23/18 04:38 Resp 18 03/23/18 05:18 BP 123/97 03/23/18 04:38 Pulse Ox 97 03/23/18 05:18 Intake & Output 03/22/18 03/22/18 03/23/18 11:59 23:59 11:59 Intake Total 20 Balance 20 Weight 150 lb 148 lb Intake: Oral 20 Other: Voiding Method Toilet Toilet Height 5 ft 1 in 5 ft 1 in Body Mass Index (BMI) 28.3 27.9 Weight Measurement Method Built in [facility] Weight Measurement Method Est/Stated by Patient Active Medications Apixaban (Eliquis -) 5 mg PO BID [facility] Last Admin: 03/23/18 09:58 Dose: 5 mg Atorvastatin Calcium (Lipitor -) 10 mg PO [facility] Calcium Carbonate/Cholecalciferol (Os-José Miguel 500+D -) 1 tab PO DAILY [facility] Last Admin: 03/23/18 09:58 Dose: 1 tab Melatonin (Melatonin) 3 mg PO HS [facility] Metoprolol Tartrate (Lopressor -) 25 mg PO TID [facility] Last Admin: 03/23/18 06:00 Dose: 25 mg Multivitamins/Minerals/Vitamin C (Tab-A-Vit -) 1 tab PO DAILY [facility] Last Admin: 03/23/18 09:58 Dose: 1 tab Pantoprazole Sodium (Protonix -) 40 mg PO DAILY [facility] Last Admin: 03/23/18 09:58 Dose: 40 mg Valacyclovir HCl (Valtrex -) 1,000 mg PO BID [facility] Last Admin: 03/23/18 09:59 Dose: 1,000 mg CBC, BMP 03/23/18 07:30 03/23/18 07:30 Physical exam Conscious/cooperative alert and awake Lungs--diminished at bases CVS-S1 and S2 regular Abdomen--soft Extremities--no edema Skin--lesion consistent with shingles Assessment and plan Clinically stable Mild elevation of LFTs No pain Monitor--CAT scan has been ordered--- don't suspect anything acute pathology Will discuss with GI monitor LFTs and monitor for anemia Clinically not bleeding If stable--- will consider discharge tomorrow any anemia workup can be done as outpatient Discussed with patient's son Will follow
--- NOTE | 2018-03-23 11:48 | EKG ---
Test Reason : Blood Pressure : / mmHG Vent. Rate : 081 BPM Atrial Rate : 081 BPM P-R Int : 154 ms QRS Dur : 118 ms QT Int : 414 ms P-R-T Axes : 063 000 002 degrees QTc Int : 480 ms NORMAL SINUS RHYTHM LOW VOLTAGE QRS RIGHT BUNDLE BRANCH BLOCK CANNOT RULE OUT ANTERIOR INFARCT (CITED ON OR BEFORE 10-FEB-2018) ABNORMAL ECG WHEN COMPARED WITH ECG OF 13-FEB-2018 10:26, NO SIGNIFICANT CHANGE WAS FOUND Confirmed by YOVANY EDDY MD ([id number]) on 03/23/2018 11:48:31 AM Referred By: Confirmed By:YOVANY EDDY MD
--- NOTE | 2018-03-23 12:26 | ECHO ---
Name: MAYKEL ANTON Exam:Adult Echocardiogram Study Date: 03/23/2018 07:48 AM Age: 82 yrs Reason For Study: PLEURAL EFFUISON ONLY Height: 61 in Weight: 150 lb BSA: 1.7 m2 MMode/2D Measurements & Calculations Ao root diam: 3.0 cm Doppler Measurements & Calculations TR max kilo: 253.8 cm/sec TR max P.8 mmHg Procedure A two-dimensional transthoracic echocardiogram with color flow and Doppler was performed. Left Ventricle The left ventricular size, thickness and function are normal. The left ventricular ejection fraction is normal. Ejection Fraction = 55-60%. The left ventricular wall motion is normal. Right Ventricle The right ventricle is normal in size and function. Atria The left atrium is mildly dilated. Right atrial size is normal. Mitral Valve There is trace mitral regurgitation. Tricuspid Valve There is trace tricuspid regurgitation. Right ventricular systolic pressure is normal. Aortic Valve No hemodynamically significant valvular aortic stenosis. Trace aortic regurgitation. Pulmonic Valve There is no pulmonic valvular regurgitation. Great Vessels The aortic root is normal size. Pericardium/Pleura There is no pericardial effusion. There is a pleural effusion present. Interpretation Summary The left ventricular size, thickness and function are normal. The right ventricle is normal in size and function. The left atrium is mildly dilated. There is trace mitral regurgitation. There is trace tricuspid regurgitation. Trace aortic regurgitation. There is a pleural effusion present. MD Jovan Price 03/23/2018 12:25 PM
[2018-03-23] MEDS ORDERED: MAG HYDROX/AL HYDROX/SIMETH 30 ML UNIT-DOSE CUP PO ONE (20:15)
[2018-03-23] MEDS: MELATONIN 1 MG TABLET PO SCH (21:47)
[2018-03-23] MEDS ORDERED: ATORVASTATIN CA 10 MG TABLET (FP) PO SCH (22:00)
[2018-03-24] MEDS: METOPROLOL TARTRATE 25 MG TABLET (FP) PO SCH ×3 (06:00→21:58)
[2018-03-24 06:06] LABS: SERUM IRON SATURATION 10 % (15-55); TOTAL IRON BINDING CAPACITY 167 ug/dL (250-450); UIBC 150 ug/dL (118-369)
[2018-03-24 08:57] LABS: CHLORIDE 107 mmol/L (98-107); SODIUM 142 mmol/L (136-145)
[2018-03-24 09:01] LABS: BASO % 3.1 % (0-2.0); EOS % 3.8 % (0-4.5); HEMOGLOBIN 8.3 GM/dL (10.7-15.3); LYMPH % 24.2 % (8-40); MCH 26.5 pg (25.7-33.7); MCHC 33.2 g/dl (32.0-36.0); MEAN PLT VOLUME 7.7 fl (7.5-11.1); MONO % 12.9 % (3.8-10.2); PLATELET COUNT 561 K/MM3 (134-434); RBC 3.13 M/mm3 (3.60-5.2); RDW 21.6 % (11.6-15.6); WHITE BLOOD COUNT 3.5 K/mm3 (4.0-10.0)
[2018-03-24 09:06] LABS: ALK PHOS 338 U/L (45-117); ANION GAP 10 MMOL/L (8-16); BILIRUBIN,DIRECT 1.5 mg/dL (0.0-0.2); BLOOD UREA NITROGEN 6 mg/dL (7-18); CALCIUM 8.3 mg/dL (8.5-10.1); CO2 25 mmol/L (21-32); CREATININE 0.4 mg/dL (0.55-1.02); GLUCOSE,RANDOM 111 mg/dL (74-106); LIPASE 52 U/L (73-393); SGOT/AST 180 U/L (15-37); SGPT/ALT 88 U/L (12-78); TOT PROT 5.8 g/dl (6.4-8.2)
--- NOTE | 2018-03-24 09:34 | PN ---
Progress Note (short form) - Note Progress Note: MRCP ordered. Problem List - Problems (1) Elevated LFTs Code(s): R94.5 - ABNORMAL RESULTS OF LIVER FUNCTION STUDIES (2) Shingles Code(s): B02.9 - ZOSTER WITHOUT COMPLICATIONS Qualifiers: Herpes zoster complications: unspecified herpes zoster complication Qualified Code(s): B02.8 - Zoster with other complications (3) UTI (urinary tract infection) Code(s): N39.0 - URINARY TRACT INFECTION, SITE NOT SPECIFIED Qualifiers: Urinary tract infection type: site unspecified Hematuria presence: without hematuria Qualified Code(s): N39.0 - Urinary tract infection, site not specified (4) Weakness Code(s): R53.1 - WEAKNESS (5) Atrial fibrillation with RVR Code(s): I48.91 - UNSPECIFIED ATRIAL FIBRILLATION (6) Pericardial effusion without cardiac tamponade Code(s): I31.3 - PERICARDIAL EFFUSION (NONINFLAMMATORY) (7) Pleural effusion Code(s): J90 - PLEURAL EFFUSION, NOT ELSEWHERE CLASSIFIED (8) Cholelithiases Code(s): K80.20 - CALCULUS OF GALLBLADDER W/O CHOLECYSTITIS W/O OBSTRUCTION
[2018-03-24] MEDS: APIXABAN 5 MG TABLET PO SCH ×2 (10:39→21:58)
[2018-03-24] MEDS: MULTIVITAMINS (DAILY MVI) TABLET (FP) PO SCH (10:39)
[2018-03-24] MEDS: PANTOPRAZOLE 40 MG TABLET (FP) PO SCH (10:39)
[2018-03-24] MEDS: CALCIUM 500MG/VIT-D 200 UNITS COMBO TABLET (FP) PO SCH (10:39)
[2018-03-24 11:39] LABS: PLATELET ESTIMATE INCREASED
[2018-03-24] MEDS: valACYclovir HCL 500 MG TABLET (FP) PO SCH ×2 (12:30→21:59)
--- NOTE | 2018-03-24 12:47 | PN ---
Progress Note (short form) - Note Progress Note: sitting in chair Son at bedside complains of pain at shingle site--- Requesting pain medication LFT increase today discussed with GI MRCP Ordered Afebrile no distress Discussed with son about anemia also--- no sign of active bleeding Endoscope discussed--can be done as outpatient--- I also discussed with GI--- agree with same Son is also in agreement regarding endoscopy Vital Signs Temp 97.9 F 03/24/18 06:00 Pulse 88 03/24/18 06:00 Resp 18 03/24/18 06:00 BP 133/62 03/24/18 06:00 Pulse Ox 98 03/23/18 22:00 Intake & Output 03/23/18 03/24/18 03/24/18 23:59 11:59 23:59 Intake Total 1090 240 Balance 1090 240 Intake: Oral 1090 240 Other: Voiding Method Toilet # Unmeasured Voids Void 2 Bowel Movement Yes # Bowel Movements 2 Active Medications Apixaban (Eliquis -) 5 mg PO BID ON LICENSE OF [facility] Last Admin: 03/24/18 10:39 Dose: 5 mg Calcium Carbonate/Cholecalciferol (Os-José Miguel 500+D -) 1 tab PO DAILY ON LICENSE OF [facility] Last Admin: 03/24/18 10:39 Dose: 1 tab Melatonin (Melatonin) 3 mg PO HS ON LICENSE OF [facility] Last Admin: 03/23/18 21:47 Dose: 3 mg Metoprolol Tartrate (Lopressor -) 25 mg PO TID ON LICENSE OF [facility] Last Admin: 03/24/18 06:00 Dose: 25 mg Multivitamins/Minerals/Vitamin C (Tab-A-Vit -) 1 tab PO DAILY ON LICENSE OF [facility] Last Admin: 03/24/18 10:39 Dose: 1 tab Pantoprazole Sodium (Protonix -) 40 mg PO DAILY ON LICENSE OF [facility] Last Admin: 03/24/18 10:39 Dose: 40 mg Valacyclovir HCl (Valtrex -) 1,000 mg PO BID ON LICENSE OF [facility] Last Admin: 03/24/18 12:30 Dose: 1,000 mg CBC, BMP 03/24/18 07:00 03/24/18 07:00 Microbiology 03/22/18 20:15 Urine Culture - Preliminary Urine - Urine Clean Catch 03/23/18 01:30 Blood Culture - Preliminary Blood - Peripheral Venous NO GROWTH OBTAINED AFTER 24 HOURS, INCUBATION TO CONTINUE FOR 4 DAYS. 03/23/18 01:30 Blood Culture - Preliminary Blood - Peripheral Venous NO GROWTH OBTAINED AFTER 24 HOURS, INCUBATION TO CONTINUE FOR 4 DAYS. Hepatic Panel Total Bilirubin 2.0 mg/dL (0.2-1.0) H 03/24/18 07:00 Direct Bilirubin 1.5 mg/dL (0.0-0.2) H 03/24/18 07:00 AST 180 U/L (15-37) H 03/24/18 07:00 ALT 88 U/L (12-78) H 03/24/18 07:00 Alkaline Phosphatase 338 U/L (45-117) H D 03/24/18 07:00 Albumin 2.0 g/dl (3.4-5.0) L 03/24/18 07:00 Physical exam Conscious/cooperative alert and awake Lungs--diminished at bases CVS-S1 and S2 regular Abdomen--soft Extremities--no edema Skin--lesion consistent with shingles Assessment and plan Clinically stable Worsening of liver function tests discontinue Lipitor Pain medications Start on gabapentin with caution as well as oxycodone Will follow Discussed with patient's son in detail Discussed with nursing staff also
[2018-03-24] MEDS ORDERED: MAG HYDROX/AL HYDROX/SIMETH 30 ML UNIT-DOSE CUP PO PRN (13:11)
[2018-03-24] MEDS: oxyCODONE HCL 5 MG TABLET PO PRN ×2 (13:30→20:33)
--- NOTE | 2018-03-24 14:04 | PN ---
Progress Note (short form) - Note Progress Note: MRCP ordered. Asymptomatic. Bili, alp and transaminases bumped this am. as well as new nutropenia and ?reactive thrombocytosis. Given these findings and the advanced age, will start empiric Abx with biliary coverage while awaiting MRCP. Discussed with MR brock to expedite the study. Problem List - Problems (1) Elevated LFTs Code(s): R94.5 - ABNORMAL RESULTS OF LIVER FUNCTION STUDIES (2) Shingles Code(s): B02.9 - ZOSTER WITHOUT COMPLICATIONS Qualifiers: Herpes zoster complications: unspecified herpes zoster complication Qualified Code(s): B02.8 - Zoster with other complications (3) UTI (urinary tract infection) Code(s): N39.0 - URINARY TRACT INFECTION, SITE NOT SPECIFIED Qualifiers: Urinary tract infection type: site unspecified Hematuria presence: without hematuria Qualified Code(s): N39.0 - Urinary tract infection, site not specified (4) Weakness Code(s): R53.1 - WEAKNESS (5) Atrial fibrillation with RVR Code(s): I48.91 - UNSPECIFIED ATRIAL FIBRILLATION (6) Pericardial effusion without cardiac tamponade Code(s): I31.3 - PERICARDIAL EFFUSION (NONINFLAMMATORY) (7) Pleural effusion Code(s): J90 - PLEURAL EFFUSION, NOT ELSEWHERE CLASSIFIED (8) Cholelithiases Code(s): K80.20 - CALCULUS OF GALLBLADDER W/O CHOLECYSTITIS W/O OBSTRUCTION
[2018-03-24] MEDS ORDERED: DEXTROSE 5%-WATER 100 ML IVPB ONE (15:32)
[2018-03-24] MEDS: GABAPENTIN 100 MG CAPSULE (FP) PO SCH ×2 (15:50→21:58)
[2018-03-24] MEDS: CEFTRIAXONE 2 GM in DEXTROSE 5%-WATER 100 ML IVPB SCH (15:51)
--- NOTE | 2018-03-24 16:46 | PN ---
Progress Note (short form) - Note Progress Note: MRCP noted. Sx consult placed. Cont. abx. NPO. Problem List - Problems (1) Elevated LFTs Code(s): R94.5 - ABNORMAL RESULTS OF LIVER FUNCTION STUDIES (2) Shingles Code(s): B02.9 - ZOSTER WITHOUT COMPLICATIONS Qualifiers: Herpes zoster complications: unspecified herpes zoster complication Qualified Code(s): B02.8 - Zoster with other complications (3) UTI (urinary tract infection) Code(s): N39.0 - URINARY TRACT INFECTION, SITE NOT SPECIFIED Qualifiers: Urinary tract infection type: site unspecified Hematuria presence: without hematuria Qualified Code(s): N39.0 - Urinary tract infection, site not specified (4) Weakness Code(s): R53.1 - WEAKNESS (5) Atrial fibrillation with RVR Code(s): I48.91 - UNSPECIFIED ATRIAL FIBRILLATION (6) Pericardial effusion without cardiac tamponade Code(s): I31.3 - PERICARDIAL EFFUSION (NONINFLAMMATORY) (7) Pleural effusion Code(s): J90 - PLEURAL EFFUSION, NOT ELSEWHERE CLASSIFIED (8) Cholelithiases Code(s): K80.20 - CALCULUS OF GALLBLADDER W/O CHOLECYSTITIS W/O OBSTRUCTION
[2018-03-24] MEDS ORDERED: PT OWN MED DRAWER 7, Y5N ONE (21:55)
[2018-03-24] MEDS: MELATONIN 1 MG TABLET PO SCH (21:59)
[2018-03-25 00:07] LABS: HBSAG SCREEN Negative (Negative); HEP A AB, IGM Negative (Negative); HEP B CORE AB, TOT Negative (Negative)
[2018-03-25] MEDS: oxyCODONE HCL 5 MG TABLET PO PRN ×2 (03:15→10:13)
[2018-03-25] MEDS: METOPROLOL TARTRATE 25 MG TABLET (FP) PO SCH ×3 (05:35→21:32)
[2018-03-25] MEDS: GABAPENTIN 100 MG CAPSULE (FP) PO SCH ×3 (05:35→21:32)
[2018-03-25 08:11] LABS: BASO % 1.4 % (0-2.0); EOS % 6.5 % (0-4.5); HEMATOCRIT 25.8 % (32.4-45.2); HEMOGLOBIN 8.4 GM/dL (10.7-15.3); LYMPH % 23.4 % (8-40); MCH 25.9 pg (25.7-33.7); MCHC 32.5 g/dl (32.0-36.0); MEAN CELL VOLUME 79.7 fl (80-96); MEAN PLT VOLUME 7.6 fl (7.5-11.1); NEUT % 54.7 % (42.8-82.8); PLATELET COUNT 538 K/MM3 (134-434); RBC 3.24 M/mm3 (3.60-5.2); RDW 22.2 % (11.6-15.6); WHITE BLOOD COUNT 4.4 K/mm3 (4.0-10.0)
[2018-03-25 08:52] LABS: CHLORIDE 105 mmol/L (98-107); SODIUM 141 mmol/L (136-145)
[2018-03-25] MEDS ORDERED: DEXTROSE 5%-WATER 100 ML IVPB ONE (08:55)
[2018-03-25 09:00] LABS: ALK PHOS 298 U/L (45-117); ANION GAP 10 MMOL/L (8-16); BILIRUBIN,DIRECT 0.4 mg/dL (0.0-0.2); BILIRUBIN,TOTAL 0.5 mg/dL (0.2-1.0); BLOOD UREA NITROGEN 6 mg/dL (7-18); CALCIUM 8.1 mg/dL (8.5-10.1); CO2 26 mmol/L (21-32); CREATININE 0.5 mg/dL (0.55-1.02); GLUCOSE,RANDOM 104 mg/dL (74-106); SGOT/AST 75 U/L (15-37); SGPT/ALT 66 U/L (12-78); TOT PROT 5.9 g/dl (6.4-8.2)
[2018-03-25] MEDS: CEFTRIAXONE 2 GM in DEXTROSE 5%-WATER 100 ML IVPB SCH (09:43)
[2018-03-25] MEDS: valACYclovir HCL 500 MG TABLET (FP) PO SCH ×2 (09:44→21:33)
[2018-03-25] MEDS: MULTIVITAMINS (DAILY MVI) TABLET (FP) PO SCH (11:03)
[2018-03-25] MEDS: CALCIUM 500MG/VIT-D 200 UNITS COMBO TABLET (FP) PO SCH (11:03)
[2018-03-25] MEDS: PANTOPRAZOLE 40 MG TABLET (FP) PO SCH (11:03)
[2018-03-25] MEDS: APIXABAN 5 MG TABLET PO SCH ×2 (11:06→21:32)
--- NOTE | 2018-03-25 11:38 | PN ---
Progress Note (short form) - Note Progress Note: patient seen and examined Events noted MRCP--- acute cholecystitis Patient kept nothing by mouth Surgical consult requested Discussed with GI last night Patient comfortable Pain better Vital Signs Temp 98.1 F 03/25/18 07:08 Pulse 80 03/25/18 07:08 Resp 20 03/25/18 07:08 BP 135/65 03/24/18 21:40 Pulse Ox 98 03/23/18 22:00 Intake & Output 03/24/18 03/24/18 03/25/18 11:59 23:59 11:59 Intake Total 240 250 100 Balance 240 250 100 Intake: IVPB 200 100 Oral 240 50 Other: Voiding Method Toilet Toilet Toilet Active Medications Al Hydroxide/Mg Hydroxide (Mylanta Oral Suspension -) 30 ml PO Q6H PRN PRN Reason: DYSPEPSIA Apixaban (Eliquis -) 5 mg PO BID [facility] Last Admin: 03/25/18 11:06 Dose: 5 mg Calcium Carbonate/Cholecalciferol (Os-José Miguel 500+D -) 1 tab PO DAILY [facility] Last Admin: 03/25/18 11:03 Dose: 1 tab Gabapentin (Neurontin -) 100 mg PO TID [facility] Last Admin: 03/25/18 05:35 Dose: 100 mg Ceftriaxone Sodium 2 gm/ (Dextrose) 100 mls @ 200 mls/hr IVPB DAILY [facility] Last Admin: 03/25/18 09:43 Dose: 200 mls/hr Metronidazole (Flagyl 500mg Premixed Ivpb -) 500 mg in 100 mls @ 100 mls/hr IVPB Q8H-IV [facility] Last Admin: 03/25/18 09:43 Dose: 100 mls/hr Melatonin (Melatonin) 3 mg PO HS [facility] Last Admin: 03/24/18 21:59 Dose: 3 mg Metoprolol Tartrate (Lopressor -) 25 mg PO TID [facility] Last Admin: 03/25/18 05:35 Dose: 25 mg Multivitamins/Minerals/Vitamin C (Tab-A-Vit -) 1 tab PO DAILY [facility] Last Admin: 03/25/18 11:03 Dose: 1 tab Oxycodone HCl (Roxicodone -) 5 mg PO Q6H PRN PRN Reason: PAIN LEVEL 6-10 Last Admin: 03/25/18 10:13 Dose: 5 mg Pantoprazole Sodium (Protonix -) 40 mg PO DAILY [facility] Last Admin: 03/25/18 11:03 Dose: 40 mg Valacyclovir HCl (Valtrex -) 1,000 mg PO BID [facility] Last Admin: 03/25/18 09:44 Dose: 1,000 mg CBC,CMP WBC 4.4 K/mm3 (4.0-10.0) 03/25/18 06:20 RBC 3.24 M/mm3 (3.60-5.2) L 03/25/18 06:20 Hgb 8.4 GM/dL (10.7-15.3) L 03/25/18 06:20 Hct 25.8 % (32.4-45.2) L 03/25/18 06:20 MCV 79.7 fl (80-96) L 03/25/18 06:20 MCH 25.9 pg (25.7-33.7) 03/25/18 06:20 MCHC 32.5 g/dl (32.0-36.0) 03/25/18 06:20 RDW 22.2 % (11.6-15.6) H 03/25/18 06:20 Plt Count 538 K/MM3 (134-434) H 03/25/18 06:20 MPV 7.6 fl (7.5-11.1) 03/25/18 06:20 Absolute Neuts (auto) 2.4 K/mm3 (1.5-8.0) 03/25/18 06:20 Neutrophils % 54.7 % (42.8-82.8) 03/25/18 06:20 Lymphocytes % 23.4 % (8-40) 03/25/18 06:20 Monocytes % 14.0 % (3.8-10.2) H 03/25/18 06:20 Eosinophils % 6.5 % (0-4.5) H 03/25/18 06:20 Basophils % 1.4 % (0-2.0) 03/25/18 06:20 Nucleated RBC % 0 % (0-0) 03/25/18 06:20 Hypochromia Occasional 03/22/18 20:41 Platelet Estimate Increased 03/24/18 07:00 Polychromasia Occ 03/22/18 20:41 Anisocytosis 2+ 03/22/18 20:41 Macrocytosis Occasional 03/22/18 20:41 Retic Count 1.87 % (0.5-1.5) H 03/23/18 07:30 Sodium 141 mmol/L (136-145) 03/25/18 06:20 Potassium 4.0 mmol/L (3.5-5.1) 03/25/18 06:20 Chloride 105 mmol/L (98-107) 03/25/18 06:20 Carbon Dioxide 26 mmol/L (21-32) 03/25/18 06:20 Anion Gap 10 MMOL/L (8-16) 03/25/18 06:20 BUN 6 mg/dL (7-18) L 03/25/18 06:20 Creatinine 0.5 mg/dL (0.55-1.02) L 03/25/18 06:20 Creat Clearance w eGFR > 60 (>60) 03/25/18 06:20 Random Glucose 104 mg/dL (74-106) 03/25/18 06:20 Hemoglobin A1c % 5.7 % (4.8-6.0) 03/23/18 07:30 Calcium 8.1 mg/dL (8.5-10.1) L 03/25/18 06:20 Phosphorus 4.0 mg/dL (2.5-4.9) 03/23/18 07:30 Magnesium 2.0 mg/dL (1.8-2.4) 03/23/18 07:30 Iron 17 ug/dL (27-139) L 03/23/18 07:30 TIBC 167 ug/dL (250-450) L 03/23/18 07:30 Iron Saturation 10 % (15-55) L 03/23/18 07:30 Ferritin 436.7 ng/ml (6.9-282.5) H 03/23/18 07:30 Total Bilirubin 0.5 mg/dL (0.2-1.0) 03/25/18 06:20 Direct Bilirubin 0.4 mg/dL (0.0-0.2) H 03/25/18 06:20 AST 75 U/L (15-37) H 03/25/18 06:20 ALT 66 U/L (12-78) 03/25/18 06:20 Alkaline Phosphatase 298 U/L (45-117) H D 03/25/18 06:20 Creatine Kinase 42 IU/L (26-192) 03/22/18 20:41 Troponin I < 0.02 ng/ml (0.00-0.05) 03/22/18 20:41 B-Natriuretic Peptide 2176.85 pg/ml (5-450) H 03/22/18 20:41 Total Protein 5.9 g/dl (6.4-8.2) L 03/25/18 06:20 Albumin 2.0 g/dl (3.4-5.0) L 03/25/18 06:20 Lipase 52 U/L (73-393) L 03/24/18 07:00 mri-- noted/ reviewed/ had discussed with Dr. Gallardo yesterday. Physical exam Conscious/cooperative alert and awake Lungs--diminished at bases CVS-S1 and S2 regular Abdomen--soft/ nontender--right upper quadrant Extremities--no edema Skin--lesion consistent with shingles Assessment and plan acute cholecystitis? Continue present care Discussed in detail with patient's family--son and daughter. Discussed with surgeon and also Will follow HIDA scan? Monitor LFTs Will follow Time spent--- almost 30 minutes
--- NOTE | 2018-03-25 13:04 | CONSULT ---
Consult Consult Specialty:: Surgery Referred by:: Leonor Reason for Consultation:: Abdominal pain , cholelithiasis, with cholecystitis. - History of Present Illness Chief Complaint: Abdominal pain in right upper quadrant for 3 days, with nausea. Had repair of hiatal hernia about 3 months ago, followed by pleural and pericardial effusion , and had chest tube, and pericardiocentesis. - History Source History Provided By: Patient, Family Member Limitations to Obtaining History: No Limitations - Past Medical History Cardio/Vascular: Yes: AFIB Gastrointestinal: Yes: GERD, Hiatal Hernia ...: No - Past Surgical History Past Surgical History: Yes: Hernia Repair (Hiatal hernia [address] Bassett at [facility]. Pericardial window about 3 months ago.) - Alcohol/Substance Use Hx Alcohol Use: No - Smoking History Smoking history: Never smoked Have you smoked in the past 12 months: No Aproximately how many cigarettes per day: 0 Home Medications - Allergies Allergies/Adverse Reactions: Allergies Allergy/AdvReac Type Severity Reaction Status Date / Time Corticosteroids Allergy Verified 03/22/18 20:17 (Glucocorticoids) shellfish derived Allergy Verified 03/23/18 15:26 STEROID Allergy REDNESS/HUY Uncoded 03/22/18 20:17 H - Home Medications Home Medications: Ambulatory Orders José Miguel/D3/Mag11/Zinc/Lawyer/Masoud/Bor [Caltrate 600+D Plus Tablet] 1 each PO DAILY 04/08 Multivitamin [Poly-Vitamin] 1 each PO DAILY 06/02/15 [place]-3 Fatty Acids [Fish Oil] 300 mg PO DAILY 06/02/15 Apixaban [Eliquis -] 5 mg PO BID tablet 02/24/18 Atorvastatin Ca [Lipitor] 10 mg PO HS tablet 02/24/18 Docusate Sodium [Colace -] 100 mg PO TID capsule 02/24/18 Metoprolol Tartrate [Lopressor -] 25 mg PO TID tablet 02/24/18 Pantoprazole Sodium [Protonix -] 40 mg PO DAILY tablet.ec 02/24/18 Melatonin/Pyridoxine HCl (B6) [Melatonin 3 mg Tablet] 1 each PO DAILY 03/22/18 Valacyclovir HCl [Valtrex -] 1,000 mg PO TID 03/23/18 Review of Systems - Review of Systems Gastrointestinal: reports: Abdominal Pain, Nausea Physical Exam Vital Signs: Vital Signs Temperature 98.1 F 03/25/18 07:08 Pulse Rate 80 03/25/18 07:08 Respiratory Rate 20 03/25/18 07:08 Blood Pressure 135/65 03/24/18 21:40 O2 Sat by Pulse Oximetry (%) 98 03/23/18 22:00 Gastrointestinal: Yes: Other (Herpetic eruptions an the skin of abdomen, in right upper quadrant.) Labs: CBC, BMP 03/25/18 06:20 03/25/18 06:20 Imaging - Results Cat Scan: Report Reviewed Ultrasound: Report Reviewed (Ultrasound shows a contracted gallbladder with small calculii. MRI shows a 1cm. calculii in the neck of the gallbladder with some edema.) MRI: Report Reviewed Problem List - Problems (1) Abdominal pain, right upper quadrant Code(s): R10.11 - RIGHT UPPER QUADRANT PAIN (2) Calculus of gallbladder with obstruction Code(s): K80.21 - CALCULUS OF GALLBLADDER W/O CHOLECYSTITIS WITH OBSTRUCTION Qualifiers: Cholecystitis presence: without cholecystitis Qualified Code(s): K80.21 - Calculus of gallbladder without cholecystitis with obstruction (3) Elevated LFTs Code(s): R94.5 - ABNORMAL RESULTS OF LIVER FUNCTION STUDIES (4) Shingles Code(s): B02.9 - ZOSTER WITHOUT COMPLICATIONS Qualifiers: Herpes zoster complications: unspecified herpes zoster complication Qualified Code(s): B02.8 - Zoster with other complications (5) Pericardial effusion without cardiac tamponade Code(s): I31.3 - PERICARDIAL EFFUSION (NONINFLAMMATORY) (6) Pleural effusion Code(s): J90 - PLEURAL EFFUSION, NOT ELSEWHERE CLASSIFIED Assessment/Plan Patient has obstruction of the cystic duct with calculus as per MRCP. She has other comorbid conditions , pleural effusion , pericardial effusion, atrial fibrillation on Eloquis, currentli in sinus ryhthm. Shingles eruptions. She has elevated liver enzymes, suggestive of some biliary obstruction. I have discussed with the patient and her family , about her problem of calculus of gallbladder, with stone in the cystic duct , causing obstruction and symptoms. In an ideal situation , a cholecystectomy would be the first approach. However given her other medical conditions, some of which may not be reversible , an alternative approach would be to decompress the gallbladder with a drainage catheter and differ surgical intervention for a later date. Her ejection fraction is 55-60%. the family will decide. Will obtain a HIDA scan.
[2018-03-25] MEDS: MELATONIN 1 MG TABLET PO SCH (21:33)
[2018-03-26] MEDS: METOPROLOL TARTRATE 25 MG TABLET (FP) PO SCH ×3 (06:04→21:27)
[2018-03-26] MEDS: oxyCODONE HCL 5 MG TABLET PO PRN ×3 (06:04→21:26)
[2018-03-26] MEDS: GABAPENTIN 100 MG CAPSULE (FP) PO SCH ×3 (06:04→21:26)
[2018-03-26 08:17] LABS: BASO % 1.4 % (0-2.0); EOS % 4.4 % (0-4.5); HEMOGLOBIN 8.6 GM/dL (10.7-15.3); LYMPH % 17.9 % (8-40); MCH 26.4 pg (25.7-33.7); MCHC 33.1 g/dl (32.0-36.0); MEAN CELL VOLUME 79.9 fl (80-96); MEAN PLT VOLUME 7.1 fl (7.5-11.1); MONO % 11.4 % (3.8-10.2); NEUT % 64.9 % (42.8-82.8); PLATELET COUNT 555 K/MM3 (134-434); RBC 3.25 M/mm3 (3.60-5.2); RDW 22.3 % (11.6-15.6); WHITE BLOOD COUNT 5.5 K/mm3 (4.0-10.0)
[2018-03-26] MEDS ORDERED: DEXTROSE 5%-WATER 100 ML IVPB ONE (08:43)
[2018-03-26 08:55] LABS: CHLORIDE 105 mmol/L (98-107); POTASSIUM 3.9 mmol/L (3.5-5.1); SGOT/AST 37 U/L (15-37); SGPT/ALT 47 U/L (12-78); SODIUM 142 mmol/L (136-145)
[2018-03-26 08:59] LABS: ALBUMIN 2.1 g/dl (3.4-5.0); ALK PHOS 240 U/L (45-117); ANION GAP 11 MMOL/L (8-16); BILIRUBIN,DIRECT 0.3 mg/dL (0.0-0.2); BILIRUBIN,TOTAL 0.4 mg/dL (0.2-1.0); BLOOD UREA NITROGEN 5 mg/dL (7-18); CALCIUM 8.2 mg/dL (8.5-10.1); CO2 26 mmol/L (21-32); CREATININE 0.4 mg/dL (0.55-1.02); GLUCOSE,RANDOM 124 mg/dL (74-106); TOT PROT 5.5 g/dl (6.4-8.2)
[2018-03-26] MEDS ORDERED: PT OWN MED DRAWER 7, Y5N ONE (09:47)
[2018-03-26] MEDS: APIXABAN 5 MG TABLET PO SCH ×2 (09:57→21:26)
[2018-03-26] MEDS: valACYclovir HCL 500 MG TABLET (FP) PO SCH ×2 (09:57→21:27)
[2018-03-26] MEDS: CALCIUM 500MG/VIT-D 200 UNITS COMBO TABLET (FP) PO SCH (09:57)
[2018-03-26] MEDS: PANTOPRAZOLE 40 MG TABLET (FP) PO SCH (09:57)
[2018-03-26] MEDS: MULTIVITAMINS (DAILY MVI) TABLET (FP) PO SCH (09:57)
[2018-03-26] MEDS: CEFTRIAXONE 2 GM in DEXTROSE 5%-WATER 100 ML IVPB SCH (10:43)
--- NOTE | 2018-03-26 11:04 | CON.CARD ---
Cardiology Consult (text) - Consultation Consultation Note: cc: generalized weakness hpi: 82 f hx hld, pericardial effusion s/p pericardial window, VATS 01/2018, pafib, here with general weakness. No cp, sob, palps, dizzy, loc, pnd, orthopnea, le edema. Found to have acute cholecystitis. pmh: per hpi psh: hernia repair, pericardial window social: no tob fam: no premature cad, scd ros: per hpi; no fever, vomiting, vision changes, cough gib hematuria dysuria muscle pains meds: Home Medications Medication Instructions Recorded José Miguel/D3/Mag11/Zinc/Broomcorn Sorter/Masoud/Bor 1 each PO DAILY 06/02/15 [Caltrate 600+D Plus Tablet] Multivitamin [Poly-Vitamin] 1 each PO DAILY 06/02/15 [place]-3 Fatty Acids [Fish Oil] 300 mg PO DAILY 06/02/15 Apixaban [Eliquis -] 5 mg PO BID tablet 02/24/18 Atorvastatin Ca [Lipitor] 10 mg PO HS tablet 02/24/18 Docusate Sodium [Colace -] 100 mg PO TID capsule 02/24/18 Metoprolol Tartrate [Lopressor -] 25 mg PO TID tablet 02/24/18 Pantoprazole Sodium [Protonix -] 40 mg PO DAILY tablet.ec 02/24/18 Melatonin/Pyridoxine HCl (B6) 1 each PO DAILY 03/22/18 [Melatonin 3 mg Tablet] Valacyclovir HCl [Valtrex -] 1,000 mg PO TID 03/23/18 Pe: Vital Signs Period Temp Pulse Resp BP Sys/Dawson Pulse Ox Last 24 Hr 97.8 F-98.2 F 66-84 18-20 111-140/66-82 98 nad no jvd rrr s1s2 no mrg cta bl nl eff aaox3 no le/c/c abd nt nd pos bs no jaundice diaphoresis pos dp pt, no carotid bruits Laboratory Last Values WBC 5.5 K/mm3 (4.0-10.0) 03/26/18 07:36 RBC 3.25 M/mm3 (3.60-5.2) L 03/26/18 07:36 Hgb 8.6 GM/dL (10.7-15.3) L 03/26/18 07:36 Hct 26.0 % (32.4-45.2) L 03/26/18 07:36 MCV 79.9 fl (80-96) L 03/26/18 07:36 MCH 26.4 pg (25.7-33.7) 03/26/18 07:36 MCHC 33.1 g/dl (32.0-36.0) 03/26/18 07:36 RDW 22.3 % (11.6-15.6) H 03/26/18 07:36 Plt Count 555 K/MM3 (134-434) H 03/26/18 07:36 MPV 7.1 fl (7.5-11.1) L 03/26/18 07:36 Absolute Neuts (auto) 3.5 K/mm3 (1.5-8.0) 03/26/18 07:36 Neutrophils % 64.9 % (42.8-82.8) 03/26/18 07:36 Lymphocytes % 17.9 % (8-40) D 03/26/18 07:36 Monocytes % 11.4 % (3.8-10.2) H 03/26/18 07:36 Eosinophils % 4.4 % (0-4.5) 03/26/18 07:36 Basophils % 1.4 % (0-2.0) 03/26/18 07:36 Nucleated RBC % 0 % (0-0) 03/26/18 07:36 Hypochromia Occasional 03/22/18 20:41 Platelet Estimate Increased 03/24/18 07:00 Polychromasia Occ 03/22/18 20:41 Anisocytosis 2+ 03/22/18 20:41 Macrocytosis Occasional 03/22/18 20:41 Retic Count 1.87 % (0.5-1.5) H 03/23/18 07:30 PT with INR 16.50 SEC (9.7-13.0) H 03/23/18 07:30 INR 1.46 (0.83-1.09) H 03/23/18 07:30 Sodium 142 mmol/L (136-145) 03/26/18 07:36 Potassium 3.9 mmol/L (3.5-5.1) 03/26/18 07:36 Chloride 105 mmol/L (98-107) 03/26/18 07:36 Carbon Dioxide 26 mmol/L (21-32) 03/26/18 07:36 Anion Gap 11 MMOL/L (8-16) 03/26/18 07:36 BUN 5 mg/dL (7-18) L 03/26/18 07:36 Creatinine 0.4 mg/dL (0.55-1.02) L 03/26/18 07:36 Creat Clearance w eGFR > 60 (>60) 03/26/18 07:36 Random Glucose 124 mg/dL (74-106) H 03/26/18 07:36 Hemoglobin A1c % 5.7 % (4.8-6.0) 03/23/18 07:30 Calcium 8.2 mg/dL (8.5-10.1) L 03/26/18 07:36 Phosphorus 4.0 mg/dL (2.5-4.9) 03/23/18 07:30 Magnesium 2.0 mg/dL (1.8-2.4) 03/23/18 07:30 Iron 17 ug/dL (27-139) L 03/23/18 07:30 TIBC 167 ug/dL (250-450) L 03/23/18 07:30 Iron Saturation 10 % (15-55) L 03/23/18 07:30 Ferritin 436.7 ng/ml (6.9-282.5) H 03/23/18 07:30 Total Bilirubin 0.4 mg/dL (0.2-1.0) 03/26/18 07:36 Direct Bilirubin 0.3 mg/dL (0.0-0.2) H 03/26/18 07:36 AST 37 U/L (15-37) 03/26/18 07:36 ALT 47 U/L (12-78) 03/26/18 07:36 Alkaline Phosphatase 240 U/L (45-117) H D 03/26/18 07:36 Creatine Kinase 42 IU/L (26-192) 03/22/18 20:41 Troponin I < 0.02 ng/ml (0.00-0.05) 03/22/18 20:41 B-Natriuretic Peptide 2176.85 pg/ml (5-450) H 03/22/18 20:41 Total Protein 5.5 g/dl (6.4-8.2) L 03/26/18 07:36 Albumin 2.1 g/dl (3.4-5.0) L 03/26/18 07:36 Lipase 52 U/L (73-393) L 03/24/18 07:00 Urine Color Ltyellow 03/22/18 20:15 Urine Appearance Slcloudy 03/22/18 20:15 Urine pH 6.0 (5.0-8.0) 03/22/18 20:15 Ur Specific [place] 1.003 (1.001-1.035) 03/22/18 20:15 Urine Protein Negative (NEGATIVE) 03/22/18 20:15 Urine Glucose (UA) 1+ (NEGATIVE) H 03/22/18 20:15 Urine Ketones Negative (NEGATIVE) 03/22/18 20:15 Urine Blood 2+ (NEGATIVE) H 03/22/18 20:15 Urine Nitrite Negative (NEGATIVE) 03/22/18 20:15 Urine Bilirubin Negative (<2.0 mg/dL) 03/22/18 20:15 Urine Urobilinogen Negative mg/dL (0.2-1.0) 03/22/18 20:15 Ur Leukocyte Esterase 3+ (NEGATIVE) H 03/22/18 20:15 Urine WBC (Auto) 8 /hpf (3-5) 03/22/18 20:15 Urine RBC (Auto) 4 /hpf (0-3) 03/22/18 20:15 Ur Epithelial Cells Few /HPF (FEW) 03/22/18 20:15 Urine Bacteria Rare /hpf (NONE SEEN) 03/22/18 20:15 Urine Mucus Rare 03/22/18 20:15 Hep A IgM Ab Confirm Negative (Negative) 03/23/18 07:30 Hepatitis A Ab Total Positive (Negative) H 03/23/18 07:30 Hep Bs Antigen Negative (Negative) 03/23/18 07:30 Hep Bs Antibody Reactive (.) 03/23/18 07:30 Hep B Core Total Ab Negative (Negative) 03/23/18 07:30 Blood Type A POSITIVE 03/22/18 20:41 Antibody Screen Negative 03/22/18 20:41 ecg: sr, old irbbb, nl intervals Echo 01/2018: nl LVSF. nl RV. nl LA. mod AI, mild MR/TR. large pericardial effusion, no tamponade findings present echo 02/2018: nl lv/rv, no sig valve path, nl rvsp, no pericardial eff, mild lae cxr: clear lungs a/p: 82 f hx hld, pericardial effusion s/p pericardial window, VATS 01/2018, pafib, here with general weakness. acute patsy: -on abx, surgery considering GB drain for now, no cardiac contraindications -eliquis can be held temporarily if needed for procedure pericardial effusion, large s/p pericardial window, VATS, pigtail: -s/p pericardial window, 02/14/18 -no apparent abnormalities on stains/cultures of fluid in micro reports -repeat echo now shows no pericardial eff chronic diast CHF: -stable off lasix pafib: -may have been triggered by acute pericardial dz process -cont bb -on eliquis 5 bid. Outpt f/u with her cardio dr watt- may not need residential anticoagulation in setting of reversible cause for afib with pericardial effusion hld: -statin held due to acute patsy
--- NOTE | 2018-03-26 13:02 | PN ---
Progress Note (short form) - Note Progress Note: Patient seen and examined overall comfortable Pain issues due to shingles Surgical consult noted and appreciated I also discussed with Dr. Guerrero I had also called cardiology consult--due to her extensive history--- and in anticipation of possible surgery No fever or chills. Tolerating liquid diet Vital Signs Temp 98.8 F 03/26/18 10:00 Pulse 84 03/26/18 10:00 Resp 18 03/26/18 10:00 BP 132/68 03/26/18 10:00 Pulse Ox 98 03/25/18 21:00 Intake & Output 03/25/18 03/26/18 03/26/18 23:59 11:59 23:59 Intake Total 750 Balance 750 Intake: IVPB 100 Oral 650 Other: Voiding Method Toilet Toilet # Unmeasured Voids Void 3 1 Bowel Movement No Active Medications Al Hydroxide/Mg Hydroxide (Mylanta Oral Suspension -) 30 ml PO Q6H PRN PRN Reason: DYSPEPSIA Apixaban (Eliquis -) 5 mg PO BID [facility] Last Admin: 03/26/18 09:57 Dose: 5 mg Calcium Carbonate/Cholecalciferol (Os-José Miguel 500+D -) 1 tab PO DAILY [facility] Last Admin: 03/26/18 09:57 Dose: 1 tab Gabapentin (Neurontin -) 100 mg PO TID [facility] Last Admin: 03/26/18 06:04 Dose: 100 mg Ceftriaxone Sodium 2 gm/ (Dextrose) 100 mls @ 200 mls/hr IVPB DAILY [facility] Last Admin: 03/26/18 10:43 Dose: 200 mls/hr Metronidazole (Flagyl 500mg Premixed Ivpb -) 500 mg in 100 mls @ 100 mls/hr IVPB Q8H-IV [facility] Last Admin: 03/26/18 10:00 Dose: 100 mls/hr Melatonin (Melatonin) 3 mg PO HS [facility] Last Admin: 03/25/18 21:33 Dose: 3 mg Metoprolol Tartrate (Lopressor -) 25 mg PO TID [facility] Last Admin: 03/26/18 06:04 Dose: 25 mg Multivitamins/Minerals/Vitamin C (Tab-A-Vit -) 1 tab PO DAILY [facility] Last Admin: 03/26/18 09:57 Dose: 1 tab Oxycodone HCl (Roxicodone -) 5 mg PO Q6H PRN PRN Reason: PAIN LEVEL 6-10 Last Admin: 03/26/18 11:56 Dose: 5 mg Pantoprazole Sodium (Protonix -) 40 mg PO DAILY [facility] Last Admin: 03/26/18 09:57 Dose: 40 mg Valacyclovir HCl (Valtrex -) 1,000 mg PO BID [facility] Last Admin: 03/26/18 09:57 Dose: 1,000 mg CBC, BMP 03/26/18 07:36 03/26/18 07:36 Microbiology 03/23/18 01:30 Blood Culture - Preliminary Blood - Peripheral Venous NO GROWTH OBTAINED AFTER 72 HOURS, INCUBATION TO CONTINUE FOR 2 DAYS. 03/23/18 01:30 Blood Culture - Preliminary Blood - Peripheral Venous NO GROWTH OBTAINED AFTER 72 HOURS, INCUBATION TO CONTINUE FOR 2 DAYS. Physical exam Conscious/cooperative alert and awake Lungs--diminished at bases CVS-S1 and S2 regular Abdomen--soft/ non tender--right upper quadrant Extremities--no edema Skin--lesion consistent with shingles Assessment and plan acute cholecystitis? Continue present care LFTs improved Advance diet slowly Pain control and HIDA scan Will follow
--- NOTE | 2018-03-26 14:41 | PN ---
Progress Note, Physician - Current Medication List Current Medications: Active Medications Al Hydroxide/Mg Hydroxide (Mylanta Oral Suspension -) 30 ml PO Q6H PRN PRN Reason: DYSPEPSIA Apixaban (Eliquis -) 5 mg PO BID [facility] Last Admin: 03/26/18 09:57 Dose: 5 mg Calcium Carbonate/Cholecalciferol (Os-José Miguel 500+D -) 1 tab PO DAILY [facility] Last Admin: 03/26/18 09:57 Dose: 1 tab Gabapentin (Neurontin -) 100 mg PO TID [facility] Last Admin: 03/26/18 06:04 Dose: 100 mg Ceftriaxone Sodium 2 gm/ (Dextrose) 100 mls @ 200 mls/hr IVPB DAILY [facility] Last Admin: 03/26/18 10:43 Dose: 200 mls/hr Metronidazole (Flagyl 500mg Premixed Ivpb -) 500 mg in 100 mls @ 100 mls/hr IVPB Q8H-IV [facility] Last Admin: 03/26/18 10:00 Dose: 100 mls/hr Melatonin (Melatonin) 3 mg PO HS [facility] Last Admin: 03/25/18 21:33 Dose: 3 mg Metoprolol Tartrate (Lopressor -) 25 mg PO TID [facility] Last Admin: 03/26/18 06:04 Dose: 25 mg Multivitamins/Minerals/Vitamin C (Tab-A-Vit -) 1 tab PO DAILY [facility] Last Admin: 03/26/18 09:57 Dose: 1 tab Oxycodone HCl (Roxicodone -) 5 mg PO Q6H PRN PRN Reason: PAIN LEVEL 6-10 Last Admin: 03/26/18 11:56 Dose: 5 mg Pantoprazole Sodium (Protonix -) 40 mg PO DAILY [facility] Last Admin: 03/26/18 09:57 Dose: 40 mg Valacyclovir HCl (Valtrex -) 1,000 mg PO BID [facility] Last Admin: 03/26/18 09:57 Dose: 1,000 mg - Objective Vital Signs: Vital Signs Temperature 98.8 F 03/26/18 10:00 Pulse Rate 84 03/26/18 10:00 Respiratory Rate 18 03/26/18 10:00 Blood Pressure 132/68 03/26/18 10:00 O2 Sat by Pulse Oximetry (%) 98 03/25/18 21:00 Labs: CBC, BMP 03/26/18 07:36 03/26/18 07:36 INR, PTT INR 1.46 (0.83-1.09) H 03/23/18 07:30 Problem List - Problems (1) Abdominal pain, right upper quadrant Code(s): R10.11 - RIGHT UPPER QUADRANT PAIN (2) Calculus of gallbladder with obstruction Code(s): K80.21 - CALCULUS OF GALLBLADDER W/O CHOLECYSTITIS WITH OBSTRUCTION Qualifiers: Cholecystitis presence: without cholecystitis Qualified Code(s): K80.21 - Calculus of gallbladder without cholecystitis with obstruction (3) Elevated LFTs Code(s): R94.5 - ABNORMAL RESULTS OF LIVER FUNCTION STUDIES (4) Shingles Code(s): B02.9 - ZOSTER WITHOUT COMPLICATIONS Qualifiers: Herpes zoster complications: unspecified herpes zoster complication Qualified Code(s): B02.8 - Zoster with other complications (5) Pericardial effusion without cardiac tamponade Code(s): I31.3 - PERICARDIAL EFFUSION (NONINFLAMMATORY) (6) Pleural effusion Code(s): J90 - PLEURAL EFFUSION, NOT ELSEWHERE CLASSIFIED Assessment/Plan Surgery: Patient feels better , has no abdominal pain. Hematocrit 25. Hida scan will be done on 03/28/2018. Improving abdominal pain , biliary colic with obstruction / cholecystitis. Patient and family will decide , regarding timing of cholecystectomy. Theyb are aware of comorbidities of , pericardial effusion, pkleural effusion.
[2018-03-26] MEDS: MELATONIN 1 MG TABLET PO SCH (21:27)
[2018-03-27] MEDS: GABAPENTIN 100 MG CAPSULE (FP) PO SCH ×3 (06:07→21:22)
[2018-03-27] MEDS: METOPROLOL TARTRATE 25 MG TABLET (FP) PO SCH ×3 (06:08→21:21)
[2018-03-27] MEDS: oxyCODONE HCL 5 MG TABLET PO PRN ×3 (06:12→18:25)
[2018-03-27 08:22] LABS: BASO % 1.1 % (0-2.0); EOS % 0.8 % (0-4.5); HEMATOCRIT 27.5 % (32.4-45.2); LYMPH % 18.2 % (8-40); MCH 25.9 pg (25.7-33.7); MCHC 32.6 g/dl (32.0-36.0); MEAN CELL VOLUME 79.5 fl (80-96); MEAN PLT VOLUME 7.4 fl (7.5-11.1); MONO % 11.4 % (3.8-10.2); NEUT % 68.5 % (42.8-82.8); PLATELET COUNT 579 K/MM3 (134-434); RBC 3.46 M/mm3 (3.60-5.2); RDW 22.8 % (11.6-15.6); WHITE BLOOD COUNT 8.4 K/mm3 (4.0-10.0)
[2018-03-27 08:58] LABS: ALBUMIN 2.2 g/dl (3.4-5.0); ANION GAP 10 MMOL/L (8-16); BILIRUBIN,DIRECT 0.3 mg/dL (0.0-0.2); BLOOD UREA NITROGEN 4 mg/dL (7-18); CALCIUM 8.3 mg/dL (8.5-10.1); CHLORIDE 101 mmol/L (98-107); CO2 27 mmol/L (21-32); CREATININE 0.4 mg/dL (0.55-1.02); GLUCOSE,RANDOM 127 mg/dL (74-106); POTASSIUM 3.9 mmol/L (3.5-5.1); SGOT/AST 26 U/L (15-37); SGPT/ALT 37 U/L (12-78); SODIUM 138 mmol/L (136-145)
[2018-03-27 09:00] LABS: ALK PHOS 217 U/L (45-117); BILIRUBIN,TOTAL 0.5 mg/dL (0.2-1.0); TOT PROT 5.9 g/dl (6.4-8.2)
[2018-03-27] MEDS ORDERED: PT OWN MED DRAWER 7, Y5N ONE ×2 (09:48→09:49)
[2018-03-27] MEDS ORDERED: DEXTROSE 5%-WATER 100 ML IVPB ONE (09:49)
[2018-03-27] MEDS: APIXABAN 5 MG TABLET PO SCH ×2 (09:53→21:21)
[2018-03-27] MEDS: PANTOPRAZOLE 40 MG TABLET (FP) PO SCH (09:53)
[2018-03-27] MEDS: CALCIUM 500MG/VIT-D 200 UNITS COMBO TABLET (FP) PO SCH (09:53)
[2018-03-27] MEDS: MULTIVITAMINS (DAILY MVI) TABLET (FP) PO SCH (09:53)
[2018-03-27] MEDS: valACYclovir HCL 500 MG TABLET (FP) PO SCH ×2 (09:54→21:21)
--- NOTE | 2018-03-27 10:27 | PN ---
Progress Note (short form) - Note Progress Note: Comfortable No new issues Afebrile Vital Signs Temp 98.2 F 03/27/18 07:40 Pulse 88 03/27/18 07:40 Resp 18 03/27/18 07:40 BP 135/74 03/27/18 07:40 Pulse Ox 98 03/26/18 21:00 Intake & Output 03/26/18 03/26/18 03/27/18 11:59 23:59 11:59 Intake Total 750 450 Balance 750 450 Intake: IVPB 100 100 Oral 650 350 Other: Voiding Method Toilet Toilet # Unmeasured Voids Void 1 1 Bowel Movement No Active Medications Al Hydroxide/Mg Hydroxide (Mylanta Oral Suspension -) 30 ml PO Q6H PRN PRN Reason: DYSPEPSIA Apixaban (Eliquis -) 5 mg PO BID [facility] Last Admin: 03/27/18 09:53 Dose: 5 mg Calcium Carbonate/Cholecalciferol (Os-José Miguel 500+D -) 1 tab PO DAILY [facility] Last Admin: 03/27/18 09:53 Dose: 1 tab Gabapentin (Neurontin -) 100 mg PO TID [facility] Last Admin: 03/27/18 06:07 Dose: 100 mg Ceftriaxone Sodium 2 gm/ (Dextrose) 100 mls @ 200 mls/hr IVPB DAILY [facility] Last Admin: 03/26/18 10:43 Dose: 200 mls/hr Metronidazole (Flagyl 500mg Premixed Ivpb -) 500 mg in 100 mls @ 100 mls/hr IVPB Q8H-IV [facility] Last Admin: 03/27/18 09:54 Dose: 100 mls/hr Melatonin (Melatonin) 3 mg PO HS [facility] Last Admin: 03/26/18 21:27 Dose: 3 mg Metoprolol Tartrate (Lopressor -) 25 mg PO TID [facility] Last Admin: 03/27/18 06:08 Dose: 25 mg Multivitamins/Minerals/Vitamin C (Tab-A-Vit -) 1 tab PO DAILY [facility] Last Admin: 03/27/18 09:53 Dose: 1 tab Oxycodone HCl (Roxicodone -) 5 mg PO Q6H PRN PRN Reason: PAIN LEVEL 6-10 Last Admin: 03/27/18 06:12 Dose: 5 mg Pantoprazole Sodium (Protonix -) 40 mg PO DAILY [facility] Last Admin: 03/27/18 09:53 Dose: 40 mg Valacyclovir HCl (Valtrex -) 1,000 mg PO BID [facility] Last Admin: 03/27/18 09:54 Dose: 1,000 mg CBC, BMP 03/27/18 07:00 03/27/18 07:00 Hepatic Panel Total Bilirubin 0.5 mg/dL (0.2-1.0) 03/27/18 07:00 Direct Bilirubin 0.3 mg/dL (0.0-0.2) H 03/27/18 07:00 AST 26 U/L (15-37) 03/27/18 07:00 ALT 37 U/L (12-78) 03/27/18 07:00 Alkaline Phosphatase 217 U/L (45-117) H D 03/27/18 07:00 Albumin 2.2 g/dl (3.4-5.0) L 03/27/18 07:00 Microbiology 03/23/18 01:30 Blood Culture - Preliminary Blood - Peripheral Venous NO GROWTH OBTAINED AFTER 96 HOURS, INCUBATION TO CONTINUE FOR 1 DAYS. 03/23/18 01:30 Blood Culture - Preliminary Blood - Peripheral Venous NO GROWTH OBTAINED AFTER 96 HOURS, INCUBATION TO CONTINUE FOR 1 DAYS. 03/22/18 20:15 Urine Culture - Final Urine - Urine Clean Catch Physical exam Conscious/cooperative alert and awake Lungs--diminished at bases CVS-S1 and S2 regular Abdomen--soft/ non tender--right upper quadrant Extremities--no edema Skin--lesion consistent with shingles Assessment and plan acute cholecystitis? Exam benign Continue present care LFTs improved HIDA scan pending Continue antibiotics Possible elective cholecystectomy-- Further recommendations of the HIDA scan Will consider discharge on by mouth antibiotics-tomorrow -- if no surgery is planned during this admission Will follow
[2018-03-27] MEDS: CEFTRIAXONE 2 GM in DEXTROSE 5%-WATER 100 ML IVPB SCH (11:14)
--- NOTE | 2018-03-27 11:25 | PN ---
Progress Note (short form) - Note Progress Note: s: no cp sob palps dizzy o: Vital Signs Period Temp Pulse Resp BP Sys/Dawson Pulse Ox Last 24 Hr 98.0 F-99 F 88-97 18-20 135-159/72-86 98 nad no jvd rrr s1s2 no mrg cta bl nl eff aaox3 no le/c/c abd nt nd pos bs no jaundice diaphoresis Current Medications Generic Name Dose Route Start Last Admin Trade Name Freq PRN Reason Stop Dose Admin Al Hydroxide/Mg Hydroxide 30 ml 03/24/18 13:11 Mylanta Oral Suspension - PO Q6H PRN DYSPEPSIA Apixaban 5 mg 03/23/18 10:00 03/27/18 09:53 Eliquis - PO 5 mg BID [facility] Administration Calcium Carbonate/Cholecalciferol 1 tab 03/23/18 10:00 03/27/18 09:53 Os-José Miguel 500+D - PO 1 tab DAILY [facility] Administration Gabapentin 100 mg 03/24/18 14:00 03/27/18 06:07 Neurontin - PO 100 mg TID [facility] Administration Ceftriaxone Sodium 2 gm/ 100 mls @ 200 mls/hr 03/24/18 14:06 03/27/18 11:14 Dextrose IVPB 200 mls/hr DAILY [facility] Administration Metronidazole 500 mg in 100 mls @ 100 mls/hr 03/24/18 14:15 03/27/18 09:54 Flagyl 500mg Premixed Ivpb - IVPB 100 mls/hr Q8H-IV [facility] Administration Melatonin 3 mg 03/23/18 22:00 03/26/18 21:27 Melatonin PO 3 mg HS [facility] Administration Metoprolol Tartrate 25 mg 03/23/18 06:00 03/27/18 06:08 Lopressor - PO 25 mg TID [facility] Administration Multivitamins/Minerals/Vitamin C 1 tab 03/23/18 10:00 03/27/18 09:53 Tab-A-Vit - PO 1 tab DAILY [facility] Administration Oxycodone HCl 5 mg 03/24/18 12:46 03/27/18 06:12 Roxicodone - PO 5 mg Q6H PRN Administration PAIN LEVEL 6-10 Pantoprazole Sodium 40 mg 03/23/18 10:00 03/27/18 09:53 Protonix - PO 40 mg DAILY [facility] Administration Valacyclovir HCl 1,000 mg 03/23/18 10:00 03/27/18 09:54 Valtrex - PO 1,000 mg BID [facility] Administration CBC, BMP 03/27/18 07:00 03/27/18 07:00 2 ecg: sr, old irbbb, nl intervals Echo 01/2018: nl LVSF. nl RV. nl LA. mod AI, mild MR/TR. large pericardial effusion, no tamponade findings present echo 02/2018: nl lv/rv, no sig valve path, nl rvsp, no pericardial eff, mild lae cxr: clear lungs a/p: 82 f hx hld, pericardial effusion s/p pericardial window, VATS 01/2018, pafib, here with general weakness. acute patsy: -on abx, surgery considering GB drain for now, no cardiac contraindications -eliquis can be held temporarily if needed for procedure -hida planned for tomorrow pericardial effusion, large s/p pericardial window, VATS, pigtail: -s/p pericardial window, 02/14/18 -no apparent abnormalities on stains/cultures of fluid in micro reports -repeat echo now shows no pericardial eff chronic diast CHF: -stable off lasix pafib: -may have been triggered by acute pericardial dz process -cont bb -on eliquis 5 bid. Outpt f/u with her cardio dr watt- may not need usp anticoagulation in setting of reversible cause for afib with pericardial effusion hld: -statin held due to acute patsy
--- NOTE | 2018-03-27 11:40 | PN ---
Progress Note, Physician - Current Medication List Current Medications: Active Medications Al Hydroxide/Mg Hydroxide (Mylanta Oral Suspension -) 30 ml PO Q6H PRN PRN Reason: DYSPEPSIA Apixaban (Eliquis -) 5 mg PO BID [facility] Last Admin: 03/27/18 09:53 Dose: 5 mg Calcium Carbonate/Cholecalciferol (Os-José Miguel 500+D -) 1 tab PO DAILY [facility] Last Admin: 03/27/18 09:53 Dose: 1 tab Gabapentin (Neurontin -) 100 mg PO TID [facility] Last Admin: 03/27/18 06:07 Dose: 100 mg Ceftriaxone Sodium 2 gm/ (Dextrose) 100 mls @ 200 mls/hr IVPB DAILY [facility] Last Admin: 03/27/18 11:14 Dose: 200 mls/hr Metronidazole (Flagyl 500mg Premixed Ivpb -) 500 mg in 100 mls @ 100 mls/hr IVPB Q8H-IV [facility] Last Admin: 03/27/18 09:54 Dose: 100 mls/hr Melatonin (Melatonin) 3 mg PO HS [facility] Last Admin: 03/26/18 21:27 Dose: 3 mg Metoprolol Tartrate (Lopressor -) 25 mg PO TID [facility] Last Admin: 03/27/18 06:08 Dose: 25 mg Multivitamins/Minerals/Vitamin C (Tab-A-Vit -) 1 tab PO DAILY [facility] Last Admin: 03/27/18 09:53 Dose: 1 tab Oxycodone HCl (Roxicodone -) 5 mg PO Q6H PRN PRN Reason: PAIN LEVEL 6-10 Last Admin: 03/27/18 06:12 Dose: 5 mg Pantoprazole Sodium (Protonix -) 40 mg PO DAILY [facility] Last Admin: 03/27/18 09:53 Dose: 40 mg Valacyclovir HCl (Valtrex -) 1,000 mg PO BID [facility] Last Admin: 03/27/18 09:54 Dose: 1,000 mg - Objective Vital Signs: Vital Signs Temperature 98.2 F 03/27/18 07:40 Pulse Rate 88 03/27/18 07:40 Respiratory Rate 18 03/27/18 07:40 Blood Pressure 135/74 03/27/18 07:40 O2 Sat by Pulse Oximetry (%) 98 03/26/18 21:00 Labs: CBC, BMP 03/27/18 07:00 03/27/18 07:00 INR, PTT INR 1.46 (0.83-1.09) H 03/23/18 07:30 Problem List - Problems (1) Abdominal pain, right upper quadrant Code(s): R10.11 - RIGHT UPPER QUADRANT PAIN (2) Calculus of gallbladder with obstruction Code(s): K80.21 - CALCULUS OF GALLBLADDER W/O CHOLECYSTITIS WITH OBSTRUCTION Qualifiers: Cholecystitis presence: without cholecystitis Qualified Code(s): K80.21 - Calculus of gallbladder without cholecystitis with obstruction (3) Elevated LFTs Code(s): R94.5 - ABNORMAL RESULTS OF LIVER FUNCTION STUDIES (4) Shingles Code(s): B02.9 - ZOSTER WITHOUT COMPLICATIONS Qualifiers: Herpes zoster complications: unspecified herpes zoster complication Qualified Code(s): B02.8 - Zoster with other complications (5) Pericardial effusion without cardiac tamponade Code(s): I31.3 - PERICARDIAL EFFUSION (NONINFLAMMATORY) (6) Pleural effusion Code(s): J90 - PLEURAL EFFUSION, NOT ELSEWHERE CLASSIFIED Assessment/Plan Patient feels better, has no abdominal pain. C/O pain in her left shoulder. Albumin is 2.2 . HIDA scan tomorrow, R/O cystic duct obstruction. Consider elective cholecystectomy.
[2018-03-27] MEDS: MELATONIN 1 MG TABLET PO SCH (21:21)
[2018-03-28] MEDS: METOPROLOL TARTRATE 25 MG TABLET (FP) PO SCH ×3 (06:03→22:12)
[2018-03-28] MEDS: oxyCODONE HCL 5 MG TABLET PO PRN ×3 (06:03→18:21)
[2018-03-28] MEDS: GABAPENTIN 100 MG CAPSULE (FP) PO SCH ×3 (06:03→22:11)
[2018-03-28 08:26] LABS: BASO % 0.9 % (0-2.0); EOS % 0.2 % (0-4.5); HEMATOCRIT 27.2 % (32.4-45.2); HEMOGLOBIN 8.7 GM/dL (10.7-15.3); LYMPH % 15.3 % (8-40); MCH 25.7 pg (25.7-33.7); MCHC 32.2 g/dl (32.0-36.0); MEAN CELL VOLUME 79.7 fl (80-96); MEAN PLT VOLUME 7.5 fl (7.5-11.1); MONO % 10.9 % (3.8-10.2); NEUT % 72.7 % (42.8-82.8); PLATELET COUNT 629 K/MM3 (134-434); RBC 3.41 M/mm3 (3.60-5.2); RDW 23.3 % (11.6-15.6); WHITE BLOOD COUNT 11.8 K/mm3 (4.0-10.0)
[2018-03-28 08:41] LABS: ANION GAP 11 MMOL/L (8-16); BLOOD UREA NITROGEN 5 mg/dL (7-18); CALCIUM 8.1 mg/dL (8.5-10.1); CHLORIDE 100 mmol/L (98-107); CO2 26 mmol/L (21-32); CREATININE 0.4 mg/dL (0.55-1.02); GLUCOSE,RANDOM 131 mg/dL (74-106); SGOT/AST 18 U/L (15-37); SGPT/ALT 27 U/L (12-78); SODIUM 137 mmol/L (136-145)
[2018-03-28 08:42] LABS: ALK PHOS 180 U/L (45-117); BILIRUBIN,TOTAL 0.7 mg/dL (0.2-1.0); TOT PROT 5.9 g/dl (6.4-8.2)
--- NOTE | 2018-03-28 10:49 | PN ---
Progress Note, Physician Chief Complaint: has pain at right side of body-- shingles area - Current Medication List Current Medications: Active Medications Al Hydroxide/Mg Hydroxide (Mylanta Oral Suspension -) 30 ml PO Q6H PRN PRN Reason: DYSPEPSIA Apixaban (Eliquis -) 5 mg PO BID [facility] Last Admin: 03/27/18 21:21 Dose: 5 mg Calcium Carbonate/Cholecalciferol (Os-José Miguel 500+D -) 1 tab PO DAILY [facility] Last Admin: 03/27/18 09:53 Dose: 1 tab Gabapentin (Neurontin -) 100 mg PO TID [facility] Last Admin: 03/28/18 06:03 Dose: 100 mg Ceftriaxone Sodium 2 gm/ (Dextrose) 100 mls @ 200 mls/hr IVPB DAILY [facility] Last Admin: 03/27/18 11:14 Dose: 200 mls/hr Metronidazole (Flagyl 500mg Premixed Ivpb -) 500 mg in 100 mls @ 100 mls/hr IVPB Q8H-IV [facility] Last Admin: 03/28/18 01:00 Dose: 100 mls/hr Melatonin (Melatonin) 3 mg PO HS [facility] Last Admin: 03/27/18 21:21 Dose: 3 mg Metoprolol Tartrate (Lopressor -) 25 mg PO TID [facility] Last Admin: 03/28/18 06:03 Dose: 25 mg Multivitamins/Minerals/Vitamin C (Tab-A-Vit -) 1 tab PO DAILY [facility] Last Admin: 03/27/18 09:53 Dose: 1 tab Oxycodone HCl (Roxicodone -) 5 mg PO Q6H PRN PRN Reason: PAIN LEVEL 6-10 Last Admin: 03/28/18 06:03 Dose: 5 mg Pantoprazole Sodium (Protonix -) 40 mg PO DAILY [facility] Last Admin: 03/27/18 09:53 Dose: 40 mg Valacyclovir HCl (Valtrex -) 1,000 mg PO BID [facility] Last Admin: 03/27/18 21:21 Dose: 1,000 mg - Objective Vital Signs: Vital Signs Temperature 98.1 F 03/28/18 06:00 Pulse Rate 96 H 03/28/18 06:00 Respiratory Rate 20 03/28/18 06:00 Blood Pressure 134/71 03/28/18 06:00 O2 Sat by Pulse Oximetry (%) 98 03/27/18 21:00 Constitutional: Yes: Anxious Cardiovascular: Yes: Regular Rate and Rhythm Respiratory: Yes: Diminished Gastrointestinal: Yes: Normal Bowel Sounds, Soft. No: Distention, Tenderness Edema: No Integumentary: Yes: Rash (blisters on right side of body) Labs: CBC, BMP 03/28/18 07:00 03/28/18 07:00 INR, PTT INR 1.46 (0.83-1.09) H 03/23/18 07:30 Problem List - Problems (1) Cholelithiases Code(s): K80.20 - CALCULUS OF GALLBLADDER W/O CHOLECYSTITIS W/O OBSTRUCTION (2) Elevated LFTs Code(s): R94.5 - ABNORMAL RESULTS OF LIVER FUNCTION STUDIES (3) Shingles Code(s): B02.9 - ZOSTER WITHOUT COMPLICATIONS Qualifiers: Herpes zoster complications: unspecified herpes zoster complication Qualified Code(s): B02.8 - Zoster with other complications (4) Weakness Code(s): R53.1 - WEAKNESS Assessment/Plan PLAN on Valtrex HIDA scan completed pain control increase Neurontin continue with meds
[2018-03-28] MEDS ORDERED: PT OWN MED DRAWER 7, Y5N ONE (11:30)
[2018-03-28] MEDS ORDERED: DEXTROSE 5%-WATER 100 ML IVPB ONE (11:31)
[2018-03-28] MEDS: CALCIUM 500MG/VIT-D 200 UNITS COMBO TABLET (FP) PO SCH (11:46)
[2018-03-28] MEDS: MULTIVITAMINS (DAILY MVI) TABLET (FP) PO SCH (11:46)
[2018-03-28] MEDS: PANTOPRAZOLE 40 MG TABLET (FP) PO SCH (11:47)
[2018-03-28] MEDS: APIXABAN 5 MG TABLET PO SCH ×2 (11:47→22:11)
[2018-03-28] MEDS: valACYclovir HCL 500 MG TABLET (FP) PO SCH ×2 (11:47→22:11)
[2018-03-28] MEDS: CEFTRIAXONE 2 GM in DEXTROSE 5%-WATER 100 ML IVPB SCH (11:48)
--- NOTE | 2018-03-28 12:22 | PN ---
Progress Note, Physician Chief Complaint: C/O left shoulder pain. Denies any abdominal pain. - Current Medication List Current Medications: Active Medications Al Hydroxide/Mg Hydroxide (Mylanta Oral Suspension -) 30 ml PO Q6H PRN PRN Reason: DYSPEPSIA Apixaban (Eliquis -) 5 mg PO BID [facility] Last Admin: 03/28/18 11:47 Dose: 5 mg Calcium Carbonate/Cholecalciferol (Os-José Miguel 500+D -) 1 tab PO DAILY [facility] Last Admin: 03/28/18 11:46 Dose: 1 tab Gabapentin (Neurontin -) 100 mg PO TID [facility] Last Admin: 03/28/18 06:03 Dose: 100 mg Ceftriaxone Sodium 2 gm/ (Dextrose) 100 mls @ 200 mls/hr IVPB DAILY [facility] Last Admin: 03/28/18 11:48 Dose: 200 mls/hr Metronidazole (Flagyl 500mg Premixed Ivpb -) 500 mg in 100 mls @ 100 mls/hr IVPB Q8H-IV [facility] Last Admin: 03/28/18 11:46 Dose: 100 mls/hr Melatonin (Melatonin) 3 mg PO HS [facility] Last Admin: 03/27/18 21:21 Dose: 3 mg Metoprolol Tartrate (Lopressor -) 25 mg PO TID [facility] Last Admin: 03/28/18 06:03 Dose: 25 mg Multivitamins/Minerals/Vitamin C (Tab-A-Vit -) 1 tab PO DAILY [facility] Last Admin: 03/28/18 11:46 Dose: 1 tab Oxycodone HCl (Roxicodone -) 5 mg PO Q6H PRN PRN Reason: PAIN LEVEL 6-10 Last Admin: 03/28/18 11:54 Dose: 5 mg Pantoprazole Sodium (Protonix -) 40 mg PO DAILY [facility] Last Admin: 03/28/18 11:47 Dose: 40 mg Valacyclovir HCl (Valtrex -) 1,000 mg PO BID [facility] Last Admin: 03/28/18 11:47 Dose: 1,000 mg - Objective Vital Signs: Vital Signs Temperature 98.1 F 03/28/18 06:00 Pulse Rate 96 H 03/28/18 06:00 Respiratory Rate 20 03/28/18 06:00 Blood Pressure 134/71 03/28/18 06:00 O2 Sat by Pulse Oximetry (%) 98 03/27/18 21:00 Labs: CBC, BMP 03/28/18 07:00 03/28/18 07:00 INR, PTT INR 1.46 (0.83-1.09) H 03/23/18 07:30 Problem List - Problems (1) Abdominal pain, right upper quadrant Code(s): R10.11 - RIGHT UPPER QUADRANT PAIN (2) Calculus of gallbladder with obstruction Code(s): K80.21 - CALCULUS OF GALLBLADDER W/O CHOLECYSTITIS WITH OBSTRUCTION Qualifiers: Cholecystitis presence: without cholecystitis Qualified Code(s): K80.21 - Calculus of gallbladder without cholecystitis with obstruction (3) Elevated LFTs Code(s): R94.5 - ABNORMAL RESULTS OF LIVER FUNCTION STUDIES (4) Shingles Code(s): B02.9 - ZOSTER WITHOUT COMPLICATIONS Qualifiers: Herpes zoster complications: unspecified herpes zoster complication Qualified Code(s): B02.8 - Zoster with other complications (5) Pericardial effusion without cardiac tamponade Code(s): I31.3 - PERICARDIAL EFFUSION (NONINFLAMMATORY) (6) Pleural effusion Code(s): J90 - PLEURAL EFFUSION, NOT ELSEWHERE CLASSIFIED Assessment/Plan Patient's albumin is 2 grams. Hematocrit 27.2 HIDA scan : shows visualization of the gallbladder , rules out cystic duct obstruction , official reading pending. cholelithiasis with ? colic. WBC is rising. Herepes zoster infec tion. Consider elective cholecystectomy. Patient is aware, and informed.
--- NOTE | 2018-03-28 12:32 | PN ---
Progress Note (short form) - Note Progress Note: s: no cp sob palps dizzy, feels well today o: Vital Signs Period Temp Pulse Resp BP Sys/Dawson Pulse Ox Last 24 Hr 97.2 F-98.6 F 86-104 18-20 123-145/66-78 98-98 nad no jvd rrr s1s2 no mrg cta bl nl eff aaox3 no le/c/c abd nt nd pos bs no jaundice diaphoresis Current Medications Al Hydroxide/Mg Hydroxide (Mylanta Oral Suspension -) 30 ml PO Q6H PRN PRN Reason: DYSPEPSIA Apixaban (Eliquis -) 5 mg PO BID [facility] Last Admin: 03/28/18 11:47 Dose: 5 mg Calcium Carbonate/Cholecalciferol (Os-José Miguel 500+D -) 1 tab PO DAILY [facility] Last Admin: 03/28/18 11:46 Dose: 1 tab Gabapentin (Neurontin -) 100 mg PO TID [facility] Last Admin: 03/28/18 06:03 Dose: 100 mg Ceftriaxone Sodium 2 gm/ (Dextrose) 100 mls @ 200 mls/hr IVPB DAILY [facility] Last Admin: 03/28/18 11:48 Dose: 200 mls/hr Metronidazole (Flagyl 500mg Premixed Ivpb -) 500 mg in 100 mls @ 100 mls/hr IVPB Q8H-IV [facility] Last Admin: 03/28/18 11:46 Dose: 100 mls/hr Melatonin (Melatonin) 3 mg PO HS [facility] Last Admin: 03/27/18 21:21 Dose: 3 mg Metoprolol Tartrate (Lopressor -) 25 mg PO TID [facility] Last Admin: 03/28/18 06:03 Dose: 25 mg Multivitamins/Minerals/Vitamin C (Tab-A-Vit -) 1 tab PO DAILY [facility] Last Admin: 03/28/18 11:46 Dose: 1 tab Oxycodone HCl (Roxicodone -) 5 mg PO Q6H PRN PRN Reason: PAIN LEVEL 6-10 Last Admin: 03/28/18 11:54 Dose: 5 mg Pantoprazole Sodium (Protonix -) 40 mg PO DAILY [facility] Last Admin: 03/28/18 11:47 Dose: 40 mg Valacyclovir HCl (Valtrex -) 1,000 mg PO BID [facility] Last Admin: 03/28/18 11:47 Dose: 1,000 mg ecg: sr, old irbbb, nl intervals Echo 01/2018: nl LVSF. nl RV. nl LA. mod AI, mild MR/TR. large pericardial effusion, no tamponade findings present echo 02/2018: nl lv/rv, no sig valve path, nl rvsp, no pericardial eff, mild lae cxr: clear lungs a/p: 82 f hx hld, pericardial effusion s/p pericardial window, VATS 01/2018, pafib, here with general weakness. acute patsy: -on abx, surgery considering GB drain for now, no cardiac contraindications -eliquis can be held temporarily if needed for procedure -hida report pending pericardial effusion, large s/p pericardial window, VATS, pigtail: -s/p pericardial window, 02/14/18 -no apparent abnormalities on stains/cultures of fluid in micro reports -repeat echo now shows no pericardial eff chronic diast CHF: -stable off lasix pafib: -may have been triggered by acute pericardial dz process -cont bb -on eliquis 5 bid. Outpt f/u with her cardio dr watt- may not need care home anticoagulation in setting of reversible cause for afib with pericardial effusion hld: -statin held due to acute patsy
[2018-03-28] MEDS: MELATONIN 1 MG TABLET PO SCH (22:12)
[2018-03-29] MEDS: oxyCODONE HCL 5 MG TABLET PO PRN ×2 (03:49→10:23)
[2018-03-29] MEDS: METOPROLOL TARTRATE 25 MG TABLET (FP) PO SCH (06:50)
[2018-03-29] MEDS: GABAPENTIN 100 MG CAPSULE (FP) PO SCH (06:50)
[2018-03-29 08:23] LABS: BASO % 0.8 % (0-2.0); EOS % 0.7 % (0-4.5); HEMOGLOBIN 9.2 GM/dL (10.7-15.3); LYMPH % 16.6 % (8-40); MCH 25.6 pg (25.7-33.7); MCHC 31.7 g/dl (32.0-36.0); MEAN CELL VOLUME 80.9 fl (80-96); MEAN PLT VOLUME 7.2 fl (7.5-11.1); MONO % 8.7 % (3.8-10.2); NEUT % 73.2 % (42.8-82.8); PLATELET COUNT 594 K/MM3 (134-434); RBC 3.58 M/mm3 (3.60-5.2); RDW 23.3 % (11.6-15.6); WHITE BLOOD COUNT 11.8 K/mm3 (4.0-10.0)
[2018-03-29 08:54] LABS: ALBUMIN 2.1 g/dl (3.4-5.0); ALK PHOS 167 U/L (45-117); ANION GAP 11 MMOL/L (8-16); BILIRUBIN,TOTAL 0.6 mg/dL (0.2-1.0); BLOOD UREA NITROGEN 6 mg/dL (7-18); CALCIUM 8.2 mg/dL (8.5-10.1); CHLORIDE 101 mmol/L (98-107); CO2 26 mmol/L (21-32); CREATININE 0.4 mg/dL (0.55-1.02); GLUCOSE,RANDOM 127 mg/dL (74-106); POTASSIUM 4.2 mmol/L (3.5-5.1); SGOT/AST 12 U/L (15-37); SGPT/ALT 23 U/L (12-78); SODIUM 138 mmol/L (136-145); TOT PROT 6.1 g/dl (6.4-8.2)
[2018-03-29] MEDS ORDERED: PT OWN MED DRAWER 7, Y5N ONE (10:12)
[2018-03-29] MEDS ORDERED: DEXTROSE 5%-WATER 100 ML IVPB ONE (10:13)
[2018-03-29] MEDS: PANTOPRAZOLE 40 MG TABLET (FP) PO SCH (10:23)
[2018-03-29] MEDS: MULTIVITAMINS (DAILY MVI) TABLET (FP) PO SCH (10:24)
[2018-03-29] MEDS: CALCIUM 500MG/VIT-D 200 UNITS COMBO TABLET (FP) PO SCH (10:24)
[2018-03-29] MEDS: APIXABAN 5 MG TABLET PO SCH (10:24)
[2018-03-29] MEDS: valACYclovir HCL 500 MG TABLET (FP) PO SCH (10:24)
--- NOTE | 2018-03-29 12:28 | DS ---
Physical Examination Vital Signs: Vital Signs Temperature 98.7 F 03/29/18 06:00 Pulse Rate 92 H 03/29/18 06:00 Respiratory Rate 20 03/29/18 06:00 Blood Pressure 142/78 03/29/18 06:00 O2 Sat by Pulse Oximetry (%) 98 03/28/18 21:00 Constitutional: Yes: No Distress, Calm Cardiovascular: Yes: Regular Rate and Rhythm Respiratory: Yes: CTA Bilaterally Gastrointestinal: Yes: Normal Bowel Sounds, Soft. No: Tenderness Edema: No Integumentary: Yes: Rash (blisters over rt side of body) Labs: CBC, BMP 03/29/18 07:00 03/29/18 07:00 Discharge Summary Reason For Visit: WEAKNESS Current Active Problems Abdominal pain, right upper quadrant (Acute) Calculus of gallbladder with obstruction (Acute) Cholelithiases (Acute) Elevated LFTs (Acute) Shingles (Acute) UTI (urinary tract infection) (Acute) Weakness (Acute) Hospital Course: Admitted for elevated LFT, shingles, weakness Seen by GI , surgeon and Cardiology Recent pericardial window placement MRCP-- cholelithiasis HIDA-- no obstruction LFT trending down Pt clinically better Pt is stable to dc home -- on PO Valtrex Will need to see GI and Surgery as outpt Consider elective cholecystectomy-- Business Machine Mechanic did advise that Eliquis can be held if needed for surgery Spoke with Surgery only electively as this is not urgent at this time. She needs to be optimized first-- recent pericardial window-- high risk for any surgical procedures at this time. stable for dc home Condition: Fair - Instructions Referrals: Dai Duong MD [Staff Physician] - 2 Weeks Oniel Guerrero MD [Staff Physician] - 1 Month Jimmy Gallardo MD [Staff Physician] - 1 Month Disposition: HOME - Home Medications Comprehensive Discharge Medication List: Ambulatory Orders José Miguel/D3/[email or web address]/Zinc/Project Developer/Masoud/Bor [Caltrate 600+D Plus Tablet] 1 each PO DAILY 04/08 Multivitamin [Poly-Vitamin] 1 each PO DAILY 06/02/15 Stanton-3 Fatty Acids [Fish Oil] 300 mg PO DAILY 06/02/15 Apixaban [Eliquis -] 5 mg PO BID tablet 02/24/18 Atorvastatin Ca [Lipitor] 10 mg PO HS tablet 02/24/18 Docusate Sodium [Colace -] 100 mg PO TID capsule 02/24/18 Metoprolol Tartrate [Lopressor -] 25 mg PO TID tablet 02/24/18 Pantoprazole Sodium [Protonix -] 40 mg PO DAILY tablet.ec 02/24/18 Melatonin/Pyridoxine HCl (B6) [Melatonin 3 mg Tablet] 1 each PO DAILY 03/22/18 Cefuroxime Axetil [Ceftin -] 500 mg PO Q12H #4 tablet 03/29/18 Gabapentin [Neurontin -] 200 mg PO TID #30 capsule 03/29/18 Valacyclovir HCl [Valtrex -] 1,000 mg PO BID #4 tablet 03/29/18 traMADol HCL [Ultram -] 50 mg PO Q8H PRN #14 tablet MDD 3 03/29/18
[2018-03-29] MEDS: CEFTRIAXONE 2 GM in DEXTROSE 5%-WATER 100 ML IVPB SCH (12:36)
[2018-03-29 14:27] VITALS: BP 128/80; PULSE 88; TEMP 98.6
== END 2018-03-29 13:40 | disposition home health service (06) | DRG 445 ==
LOC: JER 20:12 → JERBED 23:22 → J8W 03-23 04:28
PROVIDERS: ADMIT Internal Medicine; ATTEND Internal Medicine
DX: K80.01 Calculus of gallbladder with acute cholecystitis with obstruction (principal); B02.8 Zoster with other complications; R17 Unspecified jaundice; I50.32 Chronic diastolic (congestive) heart failure; N39.0 Urinary tract infection, site not specified; I11.0 Hypertensive heart disease with heart failure; I48.0 Paroxysmal atrial fibrillation; E87.5 Hyperkalemia; R94.5 Abnormal results of liver function studies; D50.9 Iron deficiency anemia, unspecified; I48.91 Unspecified atrial fibrillation; R74.0 Nonspecific elevation of levels of transaminase and lactic acid dehydrogenase [LDH]; B02.9 Zoster without complications; E78.5 Hyperlipidemia, unspecified; K21.9 Gastro-esophageal reflux disease without esophagitis; I45.10 Unspecified right bundle-branch block; Z79.01 Long term (current) use of anticoagulants; K80.20 Calculus of gallbladder without cholecystitis without obstruction; M25.512 Pain in left shoulder
CPT/HCPCS: 36415; 71045-TC-FY; 74176-TC; 74181-TC; 76705-TC; 78226-TC; 80053; 81003; 81015; 82248; 82550; 82728; 83036; 83540; 83550; 83690; 83735; 83880; 84100; 84484; 85025; 85044; 85610; 86704; 86706; 86708; 86850; 86900; 86901; 87040; 87086; 87340; 87522; 93005; 93010; 93306-TC; 99283-25; A9537

== ENCOUNTER 2021-04-09 10:26 | Emergency (ER) | payer OTHER ==
[2021-04-09 10:44] VITALS: BP 110/70; PULSE 80; TEMP 99.1; BMI 28.3
[2021-04-09] MEDS ORDERED: ACETAMINOPHEN 500 MG TABLET (FP) PO ONE (12:17)
[2021-04-09] MEDS ORDERED: ACETAMINOPHEN 500 MG TABLET (FP) ONE (12:31)
== END 2021-04-09 13:50 | disposition home or self-care (01) ==
LOC: JERFT 10:26
DX: M25.562 Pain in left knee (principal); G89.29 Other chronic pain
CPT/HCPCS: 73562-TC-LT-FY; 99284-25

== ENCOUNTER 2025-02-24 15:36 | Emergency (ER) | payer OTHER ==
[2025-02-24 15:44] VITALS: BMI 28.3
[2025-02-24 16:46] LABS: ABSOLUTE IMMATURE GRANULOCYTES 0.01 x10^3/uL (0.0-0.031); BASOPHILS # 0.03 x10^3/uL (0.01-0.08); EOSINOPHIL % 0.0 % (0.7-5.8); EOSINOPHILS # 0.00 x10^3/uL (0.04-0.36); MCHC 33.7 g/dl (32.2-35.5); MEAN CELL VOLUME 85.6 fl (79.4-94.8); MEAN PLT VOLUME 9.7 fl (9.4-12.3); MONOCYTE # 0.99 x10^3/uL (0.24-0.86); MONOCYTE % 9.6 % (4.7-12.5); RDW 14.6 % (12.5-17.0)
[2025-02-24 16:53] LABS: INR 1.83 (0.83-1.09); PROTHROMBIN TIME (PATIENT) 20.0 SEC (9.7-13.0)
[2025-02-24 17:01] LABS: CO2 27.0 mmol/L (21-32); GLUCOSE,RANDOM 181.0 mg/dL (74-106)
[2025-02-24 17:03] LABS: CREATININE 1.0 mg/dL (0.55-1.3); SGOT/AST 36.0 U/L (15-37); SGPT/ALT 26.0 U/L (13-61)
[2025-02-24 17:04] LABS: TOT PROT 7.2 g/dl (6.4-8.2)
[2025-02-24 17:06] LABS: ALK PHOS 90.0 U/L (45-117)
[2025-02-24 17:22] LABS: ERYTHROCYTE SEDIMENTATION RATE 22 mm/hr (0-30)
[2025-02-24 18:08] LABS: BODY FLUID MONOCYTE 2 %; BODYL FLD EOSINOPHIL 1 %
[2025-02-24] MEDS ORDERED: ACETAMINOPHEN 325 MG TABLET (FP) ONE (18:08)
[2025-02-24] MEDS: ACETAMINOPHEN 325 MG TABLET (FP) PO ONE (18:10)
[2025-02-24 18:51] VITALS: BP 103/57; PULSE 96; RESP 18; TEMP 98.4
[2025-02-24 23:42] LABS: HIV INTERPRETATION NEGATIVE (NEGATIVE)
[2025-02-25 20:48] LABS: HCV DIAGNOSTIC IN-HOUSE W/RFLX NON-REACTIVE (NONREACTIVE)
== END 2025-02-24 19:23 | disposition home or self-care (01) ==
LOC: JER 15:36
DX: M25.562 Pain in left knee (principal); G89.29 Other chronic pain
CPT/HCPCS: 36415; 73562-TC-LT-FY; 80053; 82945; 83615; 84560; 85025; 85610; 85651; 86140; 86803; 86850; 86900; 86901; 87040; 87070; 87075; 87205; 87389; 89060; 99285-25